=== PATIENT | male | born 1985 | race Caucasian/White ===

== ENCOUNTER 2018-06-05 21:49 | Emergency (ER) | payer MEDICAID ==
[~2018-06-05] VITALS: Ht 177.8 cm; Wt 79.4 kg
[2018-06-05] MEDS ORDERED: NKM (22:24)
[2018-06-05 22:25] VITALS: BP 145/78
--- NOTE | 2018-06-05 22:25 | NUR ---
ED Nurse Note: pt walked in c/o allergic rhinitis started 1 week ago. pt stated earlier he took claritin thats why the symptom subsided.
[2018-06-05] MEDS ORDERED: CLARITIN-D 241 EACH PO (22:45)
[2018-06-05] MEDS ORDERED: FLONASE ALLERG9.9 ML NS (22:45)
[2018-06-05 22:55] VITALS: BP 145/78
--- NOTE | 2018-06-05 22:55 | NUR ---
ER DISCHARGE NOTE: Patient is cleared to be discharged per ERMD, pt is aox4, on room air, with stable vital signs. pt was given dc and prescription instructions, pt was able to verbalize understanding, pt id band removed without complications. pt is able to ambulate with steady gait. pt took all belongings.
--- NOTE | 2018-06-06 00:07 | Emergency Room Report ---
History of Present Illness General Chief Complaint: Allergies Source: Patient Present Illness HPI 32-year-old male presents ED for evaluation. Complaining of runny nose and seasonal allergies times one week. Normally takes Claritin and Flonase but does not have medication at this time. Denies fevers or chills. Denies cough. Denies sore throat. Denies any pain. No other aggravating relieving factors. Denies any other associated symptoms Allergies: Coded Allergies: No Known Allergies (Unverified , 06/05/18) Patient History Past Medical History: none Past Surgical History: none Pertinent Family History: none Social History: Denies: smoking, alcohol use, drug use Immunizations: UTD Reviewed Nursing Documentation: PMH: Agreed; PSxH: Agreed Review of Systems All Other Systems: negative except mentioned in HPI Physical Exam Vital Signs Date Time Temp Pulse Resp B/P (MAP) Pulse Ox O2 Delivery O2 Flow Rate FiO2 06/05/18 22:21 98.8 79 16 145/78 95 Room Air Sp02 EP Interpretation: reviewed, normal General Appearance: no apparent distress, alert, GCS 15, non-toxic Head: normocephalic Eyes: bilateral eye normal inspection, bilateral eye PERRL ENT: hearing grossly normal, normal pharynx, no angioedema, normal voice, TMs + canals normal Neck: full range of motion, supple/symm/no masses Respiratory: normal inspection Cardiovascular #1: normal inspection Gastrointestinal: normal inspection Rectal: deferred Genitourinary: no CVA tenderness Musculoskeletal: normal inspection Neurologic: alert, oriented x3, responsive, motor strength/tone normal, sensory intact, speech normal Psychiatric: normal inspection Skin: normal inspection Lymphatic: normal inspection Medical Decision Making Diagnostic Impression: Primary Impression: Environmental allergies ER Course Hospital Course 32-year-old male presents with runny nose and history of allergies times one week Differential diagnoses include: URI, pharyngitis, otitis media, asthma Clinical course Patient placed on stretcher. After initial history, physical exam reveals a young male in no acute distress. Bilateral TM unremarkable. No pharyngeal erythema. No tonsillar exudates. No lymphadenopathy. lungs clear. abdomen soft. No signs of infection. Likely seasonal allergies. We will discharge with Claritin and Flonase. Safe for discharge with close outpatient follow-up. Does not have a PMD. We'll provide referrals Diagnosis - environmental allergies Stable and discharged home with Rx claritin, flonase. Instructed to followup with PMD. Return to ED if symptoms recur or worsen Last Vital Signs Date Time Temp Pulse Resp B/P (MAP) Pulse Ox O2 Delivery O2 Flow Rate FiO2 06/05/18 22:55 98.8 76 16 145/78 95 Room Air Status: improved Disposition: HOME, SELF-CARE Condition: Stable Scripts Fluticasone Propionate (Flonase Allergy Relief) 9.9 Ml [place].susp 1 SPRAYS NS BID, #9.9 ML Prov: Alfonzo Martinez MD 06/05/18 Loratadine/Pseudoephedrine (CLARITIN-D 24 HOUR TABLET) 1 Each Tab.er.24h 1 TAB PO DAILY, #30 TAB Prov: Alfonzo Martinez MD 06/05/18 Referrals: [facility]P) [facility]. [facility] Patient Instructions: Allergies Alfonzo Martinez MD Jun 06, 2018 00:07
== END 2018-06-05 22:55 | disposition home or self-care (01) ==
LOC: EMR 22:39
DX: J30.2 Other seasonal allergic rhinitis (principal)
CPT/HCPCS: 99282

== ENCOUNTER 2018-08-03 22:24 | Emergency (ER) | payer MEDICAID ==
[~2018-08-03] VITALS: Ht 177.8 cm; Wt 81.6 kg
[~2018-08-03 22:24] MED LIST: CLARITIN-D 241 EACH PO; FLONASE ALLERG9.9 ML NS; NKM
--- NOTE | 2018-08-03 22:41 | NUR ---
ED Nurse Note: Received report. Pt from home, ambulatory, AAOx4, c/o increased symptoms of seasinal allergies, wanting a prescription for Claritin. Will assess and carry out ER MD's orders.
[2018-08-03 22:44] VITALS: BP 135/71
--- NOTE | 2018-08-03 22:57 | Emergency Room Report ---
History of Present Illness General Chief Complaint: Allergies Source: Patient Present Illness HPI Patient presents requesting refills of Claritin, Sudafed and Nasonex. I he's not been taking his medications for a while. He takes in a long time to get sees . There is any fevers chills productive cough. He does have a runny nose and itchy throat and UTI. Allergies: Coded Allergies: No Known Allergies (Unverified , 08/03/18) Patient History Past Medical History: see triage record Reviewed Nursing Documentation: PMH: Agreed; PSxH: Agreed Physical Exam Vital Signs Date Time Temp Pulse Resp B/P (MAP) Pulse Ox O2 Delivery O2 Flow Rate FiO2 08/03/18 22:28 98.2 68 16 135/71 (92) 98 Room Air Medical Decision Making Diagnostic Impression: Primary Impression: Environmental allergies Status: unchanged Disposition: HOME, SELF-CARE Condition: Stable Prabhu Dailey MD August 03, 2018 22:57
[2018-08-03] MEDS ORDERED: PSEUDOEPHEDRINE60 MG PO (23:11)
[2018-08-03] MEDS ORDERED: CLARITIN10 M2 ORAL (23:11)
[2018-08-03] MEDS ORDERED: NASONEX17 GM NASAL (23:11)
--- NOTE | 2018-08-03 23:27 | NUR ---
ED Nurse Note: Pt cleared by health care Provider for discharge. DC instructions/prescription was given and explained to pt and verbalized understanding of teachings. All medical deviecs such as ID band removed. Pt is AAO x4, ambulatory and left with all personal belongings.
== END 2018-08-03 23:30 | disposition home or self-care (01) ==
LOC: EMR 23:00
DX: T78.40XA Allergy, unspecified, initial encounter (principal); X58.XXXA Exposure to other specified factors, initial encounter
CPT/HCPCS: 99282

== ENCOUNTER 2019-03-12 16:55 | Emergency (ER) | payer MEDICAID ==
[~2019-03-12] VITALS: Ht 177.8 cm; Wt 79.4 kg
[~2019-03-12 16:55] MED LIST changes: +CLARITIN10 M2 ORAL; +NASONEX17 GM NASAL; +PSEUDOEPHEDRINE60 MG PO
--- NOTE | 2019-03-12 17:42 | NUR ---
ED Nurse Note: Patient arrived to ED by car from home c/o lymph node pain. Patient AxO x 4, VSS. No s/s of acute distress. Bed in lowest position.
[2019-03-12 17:55] VITALS: BP 110/61
--- NOTE | 2019-03-12 18:23 | Emergency Room Report ---
History of Present Illness General Chief Complaint: Pain Source: Patient Present Illness HPI 33-year-old female with no symptom past medical history here complaining of left sided anterior lymph node edema x2 days. Complains of left-sided neck pain however denies any meningismus fever and chills. Complains of sore throat rating a 5 out of 10. No obvious white exudates noted. Denies headache and dizziness, complains of minor cough however denies any congestion. Denies tobacco smoke, drug use. Has not taken medication for symptom relief. Denies recent travel. Allergies: Coded Allergies: No Known Allergies (Unverified , 08/03/18) Patient History Past Medical History: see triage record Past Surgical History: none Pertinent Family History: none Immunizations: UTD Reviewed Nursing Documentation: PMH: Agreed; PSxH: Agreed Nursing Documentation-PMH Past Medical History: No History, Except For Review of Systems All Other Systems: negative except mentioned in HPI Physical Exam Vital Signs Date Time Temp Pulse Resp B/P (MAP) Pulse Ox O2 Delivery O2 Flow Rate FiO2 03/12/19 17:46 98.8 72 16 110/61 (77) 95 Room Air Sp02 EP Interpretation: reviewed, normal General Appearance: no apparent distress, alert, GCS 15, non-toxic Head: normocephalic, atraumatic Eyes: bilateral eye normal inspection, bilateral eye PERRL ENT: TMs + canals normal, uvula midline, nasal congestion, tonsillar swelling Neck: supple, thyroid normal, no meningismus, no bony tend, other - Left anterior cervical lymphadenopathy Respiratory: chest non-tender, lungs clear, normal breath sounds, no rhonchi, no wheezing Cardiovascular #1: regular rate, rhythm, no edema, no murmur Gastrointestinal: non tender, soft Rectal: deferred Genitourinary: no CVA tenderness Musculoskeletal: back normal, no calf tenderness Neurologic: alert, motor strength/tone normal, oriented x3, sensory intact, responsive, speech normal Psychiatric: normal inspection, judgement/insight normal, memory normal Skin: no rash Lymphatic: adenopathy - Left-sided anterior cervical lymphadenopathy Medical Decision Making PA Attestation All diagnoses and treatment plans were reviewed and discussed with my supervising physician Dr. Shine Diagnostic Impression: Primary Impression: Cervical lymphadenopathy Additional Impression: Flu-like symptoms ER Course 33-year-old female with no symptom past medical history here complaining of left sided anterior lymph node edema x2 days. Complains of left-sided neck pain however denies any meningismus fever and chills. Complains of sore throat rating a 5 out of 10. No obvious white exudates noted. Denies headache and dizziness, complains of minor cough however denies any congestion. Denies tobacco smoke, drug use. Has not taken medication for symptom relief. Denies recent travel. Ddx considered but are not limited to: strep pharyngitis, URI, tonsillitis, peritonsillar abscess, influenza Vital signs: are WNL, pt. is afebrile H&PE are most consistent with: Cervical lymphadenopathy, flulike symptom, ORDERS: Tamiflu, guaifenesin, Motrin ED INTERVENTIONS: None required at this time. DISCHARGE: At this time pt. is stable for d/c to home. Will provide printed patient care instructions, and any necessary prescriptions. Care plan and follow up instructions have been discussed with the patient prior to discharge. Due to the patient's presentation of left-sided anterior cervical lymphadenopathy and no obvious white exudates patient to be treated Adarsh for viral and bacterial infection. Patient agrees. If worsening symptoms return to emergency room. However follow-up with primary care provider Last Vital Signs Date Time Temp Pulse Resp B/P (MAP) Pulse Ox O2 Delivery O2 Flow Rate FiO2 03/12/19 17:46 98.8 72 16 110/61 (77) 95 Room Air Disposition: HOME, SELF-CARE Condition: Stable Scripts Guaifenesin* (GUAIFENESIN) 100 Mg/5 Ml Liquid 5 ML ORAL Q6H, #120 ML 0 Refills Prov: Huma Epperson PA 03/12/19 Ibuprofen* (MOTRIN*) 600 Mg Tablet 600 MG ORAL Q8H PRN for For Pain, #30 TAB 0 Refills Prov: Huma Epperson PA 03/12/19 Azithromycin* (ZITHROMAX*) 250 Mg Tablet 250 MG ORAL DAILY, #6 TAB 0 Refills Take two tables once daily for 1 day, then one tablet once daily for 4 days. Prov: Huma Epperson PA 03/12/19 Oseltamivir Phosphate (Tamiflu) 75 Mg Capsule 75 MG ORAL TWICE A DAY for 5 Days, #10 CAP Prov: Huma Epperson PA 03/12/19 Patient Instructions: Pharyngitis, [id number] Additional Instructions: Take medication as directed, follow-up with your primary care provider, if worsening symptoms return to the emergency room Huma Epperson Mar 12, 2019 18:23
[2019-03-12] MEDS ORDERED: ZITHROMAX250 MG ORAL (18:24)
[2019-03-12] MEDS ORDERED: GUAIFENESI100 MG/5 M ORAL (18:24)
[2019-03-12] MEDS ORDERED: IBUPROFEN600 MG ORAL (18:24)
[2019-03-12] MEDS ORDERED: TAMIFLU75 MG ORAL (18:24)
[2019-03-12 18:30] VITALS: BP 110/61
--- NOTE | 2019-03-12 18:30 | NUR ---
ED DISCHARGE NOTE: Patient cleared for DC by Huma WOODARD. Patient AxO x 4, VSS. Patient verbalized understanding of DC instructions. Patient ID band removed. Patient ambulates with steady gait and took all belongings.
== END 2019-03-12 18:30 | disposition home or self-care (01) ==
LOC: EMR 18:00
DX: R59.1 Generalized enlarged lymph nodes (principal); M54.2 Cervicalgia; R07.0 Pain in throat
CPT/HCPCS: 99282

== ENCOUNTER 2019-05-12 20:58 | Emergency (ER) | payer MEDICAID ==
[~2019-05-12] VITALS: Ht 175.3 cm; Wt 77.1 kg
[~2019-05-12 20:58] MED LIST changes: +ATIVAN1 MG ORAL; +GUAIFENESI100 MG/5 M ORAL; +IBUPROFEN600 MG ORAL; +TAMIFLU75 MG ORAL; +ZITHROMAX250 MG ORAL
--- NOTE | 2019-05-12 21:13 | Emergency Room Report ---
History of Present Illness General Chief Complaint: Alcohol Intoxication Source: Patient Present Illness HPI Patient is a 33-year-old male who presents after increased alcohol intake as well as increased abdominal discomfort. He reports having significant alcohol intake over the past 4 days. He states that he had been having some nonbloody emesis as well as some increased abdominal discomfort. Denies any fever. Reports last alcohol intake approximately 5 hours prior to arrival. He states he drank several shots of alcohol at that time. Denies any bloody stools. Denies any back pain. Denies recent trauma. Previous visit for alcohol related issues. States that he is an intermittent binge drinker. Allergies: Coded Allergies: No Known Allergies (Unverified , 08/03/18) Patient History Past Medical History: see triage record Reviewed Nursing Documentation: PMH: Agreed; PSxH: Agreed Review of Systems All Other Systems: negative except mentioned in HPI Physical Exam Vital Signs Date Time Temp Pulse Resp B/P (MAP) Pulse Ox O2 Delivery O2 Flow Rate FiO2 05/12/19 21:00 98.8 103 18 143/80 (101) 94 Room Air Sp02 EP Interpretation: reviewed, normal General Appearance: normal inspection, well appearing, no apparent distress, alert, GCS 15 Head: atraumatic ENT: normal ENT inspection, hearing grossly normal, normal voice Neck: normal inspection, full range of motion, supple, no bony tend Respiratory: normal inspection, lungs clear, normal breath sounds, no respiratory distress, no retraction, no wheezing Cardiovascular #1: regular rate, rhythm, no edema Gastrointestinal: normal inspection, normal bowel sounds, non tender, soft, no guarding, no hernia Genitourinary: no CVA tenderness Musculoskeletal: normal inspection, back normal, normal range of motion Neurologic: alert, motor strength/tone normal, shape carver III-XII nml as tested, responsive, speech normal, normal inspection Psychiatric: normal inspection, judgement/insight normal, mood/affect normal Skin: no rash Medical Decision Making Diagnostic Impression: Primary Impression: Acute alcoholic intoxication ER Course Patient presented for increased nausea and vomiting as well as increased generalized weakness. Differential diagnosis include was not limited to alcohol intoxication, electrolyte abnormality, acidosis, anemia among others. Because of complexity of patient's case laboratory tests and imaging studies were ordered. Laboratory testing was ordered and patient was started on IV fluids as well as given IV thiamine. Does not appear to have any evidence of alcohol withdrawal Patient's laboratory testing did show some market elevation of the blood alcohol consistent with acute alcohol intoxication. Laboratory testing did also show some signs of hemoconcentration. Patient was given IV fluids as well as IV thiamine. Patient subsequently stated he wanted to leave. On direct questioning patient denies any suicidal thoughts. Does not appear to require inpatient psychiatric evaluation at this time. Appears to be capable of self-care and is ambulatory without assistance. Patient was given prescription for medications for possible withdrawal. He was advised to follow- up with outpatient alcohol treatment. He was advised to return if worse. This report is dictated with [employer] solution specialist software which may occasionally lead to discrepancies related to use of this software. Labs Test 05/12/19 21:18 White Blood Count 12.5 K/UL (4.8-10.8) Red Blood Count 6.57 M/UL (4.70-6.10) Hemoglobin 18.9 G/DL (14.2-18.0) Hematocrit 56.6 % (42.0-52.0) Mean Corpuscular Volume 86 FL (80-99) Mean Corpuscular Hemoglobin 28.8 PG (27.0-31.0) Mean Corpuscular Hemoglobin Concent 33.4 G/DL (32.0-36.0) Red Cell Distribution Width 12.1 % (11.6-14.8) Platelet Count 327 K/UL (150-450) Mean Platelet Volume 6.0 FL (6.5-10.1) Neutrophils (%) (Auto) 70.9 % (45.0-75.0) Lymphocytes (%) (Auto) 23.8 % (20.0-45.0) Monocytes (%) (Auto) 4.2 % (1.0-10.0) Eosinophils (%) (Auto) 0.1 % (0.0-3.0) Basophils (%) (Auto) 0.9 % (0.0-2.0) Urine Color Pale yellow Urine Appearance Clear Urine pH 6.5 (4.5-8.0) Urine Specific [place] 1.010 (1.005-1.035) Urine Protein 1+ (NEGATIVE) Urine Glucose (UA) Negative (NEGATIVE) Urine Ketones 2+ (NEGATIVE) Urine Blood 1+ (NEGATIVE) Urine Nitrite Negative (NEGATIVE) Urine Bilirubin Negative (NEGATIVE) Urine Urobilinogen Normal MG/DL (0.0-1.0) Urine Leukocyte Esterase Negative (NEGATIVE) Urine RBC 0-2 /HPF (0 - 0) Urine WBC 0-2 /HPF (0 - 0) Urine Squamous Epithelial Cells None /LPF (NONE/OCC) Urine Bacteria Occasional /HPF (NONE) Sodium Level 143 MMOL/L (136-145) Potassium Level 4.0 MMOL/L (3.5-5.1) Chloride Level 99 MMOL/L (98-107) Carbon Dioxide Level 28 MMOL/L (21-32) Anion Gap 16 mmol/L (5-15) Blood Urea Nitrogen 9 mg/dL (7-18) Creatinine 1.1 MG/DL (0.55-1.30) Estimat Glomerular Filtration Rate > 60 mL/min (>60) Glucose Level 115 MG/DL (74-106) Calcium Level 9.9 MG/DL (8.5-10.1) Total Bilirubin 0.5 MG/DL (0.2-1.0) Aspartate Amino Transf (AST/SGOT) 23 U/L (15-37) Alanine Aminotransferase (ALT/SGPT) 39 U/L (12-78) Alkaline Phosphatase 105 U/L (46-116) Total Protein 8.5 G/DL (6.4-8.2) Albumin 5.2 G/DL (3.4-5.0) Globulin 3.3 g/dL Albumin/Globulin Ratio 1.6 (1.0-2.7) Lipase 130 U/L (73-393) Serum Alcohol 245 mg/dL Last Vital Signs Date Time Temp Pulse Resp B/P (MAP) Pulse Ox O2 Delivery O2 Flow Rate FiO2 05/12/19 21:00 98.8 103 18 143/80 (101) 94 Room Air Status: improved Disposition: HOME, SELF-CARE Condition: Stable Scripts Lorazepam* (ATIVAN*) 1 Mg Tablet 1 MG ORAL THREE TIMES A DAY, #14 TAB Prov: Mario Flores MD 05/12/19 Famotidine* (Pepcid 20mg tablet*) 20 Mg Tablet 20 MG ORAL DAILY, #30 TAB 0 Refills Prov: Mario Flores MD 05/12/19 Mario Flores MD May 12, 2019 21:13
[2019-05-12 21:15] VITALS: BP 143/80
[2019-05-12] MEDS ORDERED: Thiamine HCl 100 MG in D5W 55 ML IVPB ONE (21:15)
[2019-05-12] MEDS ORDERED: FAMOTIDINE20 MG ORAL (21:15)
[2019-05-12] MEDS ORDERED: ATIVAN1 MG ORAL (21:15)
--- NOTE | 2019-05-12 21:15 | NUR ---
ED Nurse Note: Patient walked in to ER due to ETOH. Stated argued with parents, and do not want to go home. Patient stated has no idea how much he drink today. AAO x4, VSS at this time, skin is warm to touch.
[2019-05-12 21:42] LABS: APPEARANCE,URINE CLEAR; BILIRUBIN, URINE NEGATIVE (NEGATIVE); COLOR,URINE PALE YELLOW; GLUCOSE, URINE (UA) NEGATIVE (NEGATIVE); KETONES,URINE 2+ (NEGATIVE); LEUKOCYTE ESTERASE ,URINE NEGATIVE (NEGATIVE); NITRITE,URINE NEGATIVE (NEGATIVE); PH,URINE 6.5 (4.5-8.0); PROTEIN,URINE 1+ (NEGATIVE); UROBILINOGEN,URINE NORMAL MG/DL (0.0-1.0)
[2019-05-12 21:44] LABS: BASOPHILS % (AUTO) 0.9 % (0.0-2.0); EOSINOPHILS % (AUTO) 0.1 % (0.0-3.0); HEMATOCRIT 56.6 % (42.0-52.0); LYMPHOCYTES % (AUTO) 23.8 % (20.0-45.0); MEAN CORPUSCULAR VOLUME 86 FL (80-99); MONOCYTES % (AUTO) 4.2 % (1.0-10.0); NEUTROPHILS % (AUTO) 70.9 % (45.0-75.0); PLATELET COUNT 327 K/UL (150-450); RED BLOOD COUNT 6.57 M/UL (4.70-6.10); RED CELL DISTRIBUTION WIDTH 12.1 % (11.6-14.8); WHITE BLOOD COUNT 12.5 K/UL (4.8-10.8)
[2019-05-12 21:45] LABS: ANION GAP 16 mmol/L (5-15); BLOOD UREA NITROGEN 9 mg/dL (7-18); CALCIUM 9.9 MG/DL (8.5-10.1); CARBON DIOXIDE 28 MMOL/L (21-32); CHLORIDE 99 MMOL/L (98-107); CREATININE 1.1 MG/DL (0.55-1.30); HEMOGLOBIN 18.9 G/DL (14.2-18.0); SODIUM 143 MMOL/L (136-145)
[2019-05-12 21:50] LABS: ALANINE AMINOTRANSFERASE 39 U/L (12-78); ALBUMIN 5.2 G/DL (3.4-5.0); ALBUMIN/GLOBULIN RATIO 1.6 (1.0-2.7); ALKALINE PHOSPHATASE 105 U/L (46-116); ASPARTATE AMINO TRANSFERASE 23 U/L (15-37); BILIRUBIN,TOTAL 0.5 MG/DL (0.2-1.0)
[2019-05-12 22:48] VITALS: BP 143/80
--- NOTE | 2019-05-12 22:48 | NUR ---
ER DISCHARGE NOTE: Patient is cleared to be discharged per ERMD, pt is aox4, on room air, with stable vital signs. pt was given dc and prescription instructions, pt was able to verbalize understanding, pt id band and iv site removed without complications. pt is able to ambulate with steady gait. pt took all belongings.
== END 2019-05-12 22:48 | disposition home or self-care (01) ==
LOC: EMR 21:35
DX: F10.129 Alcohol abuse with intoxication, unspecified (principal); R10.9 Unspecified abdominal pain
CPT/HCPCS: 36415; 80053; 81003; 83690; 85025; 96361; 96365; 96375; G0480; J2405; J7030; S0028; Z7502; 99284

== ENCOUNTER 2019-05-17 06:59 | Emergency (ER) | payer MEDICAID ==
[~2019-05-17] VITALS: Ht 175.3 cm; Wt 81.6 kg
[~2019-05-17 06:59] MED LIST changes: +FAMOTIDINE20 MG ORAL
--- NOTE | 2019-05-17 07:02 | Emergency Room Report ---
History of Present Illness General Chief Complaint: Suicidal ideations Source: Patient, EMS Present Illness HPI 33-year-old male no past medical history history of slitting his wrist in the past presents with acute suicidal ideations after drinking states he wants to cut his wrist again and drink himself to no known aggravating relieving factors severity is severe symptoms started last night, patient presents for evaluation he is currently not on any meds he wants to be sent to a psychiatric facility Allergies: Coded Allergies: No Known Allergies (Unverified , 08/03/18) Patient History Past Medical History: see triage record Social History: Reports: alcohol use Reviewed Nursing Documentation: PMH: Agreed; PSxH: Agreed Review of Systems All Other Systems: negative except mentioned in HPI Physical Exam Sp02 EP Interpretation: reviewed, normal General Appearance: well appearing, no apparent distress, alert Head: normocephalic, atraumatic Eyes: bilateral eye PERRL, bilateral eye EOMI ENT: uvula midline, moist mucus membranes Neck: supple, thyroid normal, supple/symm/no masses Respiratory: lungs clear, no respiratory distress, no retraction, no accessory muscle use Cardiovascular #1: normal peripheral pulses, no edema, no gallop, no murmur, tachycardia Gastrointestinal: non tender, soft, no guarding, no rebound Musculoskeletal: normal inspection Neurologic: alert, oriented x3 Psychiatric: anxious Skin: no rash, warm/dry Medical Decision Making Diagnostic Impression: Primary Impression: Suicidal ideation ER Course 33-year-old male presents with acute suicidal ideations patient placed on a 5150 by police Patient accepted another outside facility patient is medically cleared patient' s plan was to cut his wrists to kill himself Laboratory Tests Test 05/17/19 07:00 05/17/19 11:43 White Blood Count 14.6 K/UL (4.8-10.8) H Red Blood Count 6.25 M/UL (4.70-6.10) H Hemoglobin 18.6 G/DL (14.2-18.0) *H Hematocrit 53.0 % (42.0-52.0) H Mean Corpuscular Volume 85 FL (80-99) Mean Corpuscular Hemoglobin 29.8 PG (27.0-31.0) Mean Corpuscular Hemoglobin Concent 35.2 G/DL (32.0-36.0) Red Cell Distribution Width 10.9 % (11.6-14.8) L Platelet Count 289 K/UL (150-450) Mean Platelet Volume 5.5 FL (6.5-10.1) L Neutrophils (%) (Auto) 75.2 % (45.0-75.0) H Lymphocytes (%) (Auto) 20.6 % (20.0-45.0) Monocytes (%) (Auto) 3.4 % (1.0-10.0) Eosinophils (%) (Auto) 0.0 % (0.0-3.0) Basophils (%) (Auto) 0.9 % (0.0-2.0) Urine Color Pale yellow Urine Appearance Clear Urine pH 5 (4.5-8.0) Urine Specific [place] 1.020 (1.005-1.035) Urine Protein Negative (NEGATIVE) Urine Glucose (UA) Negative (NEGATIVE) Urine Ketones 3+ (NEGATIVE) H Urine Blood Negative (NEGATIVE) Urine Nitrite Negative (NEGATIVE) Urine Bilirubin Negative (NEGATIVE) Urine Urobilinogen Normal MG/DL (0.0-1.0) Urine Leukocyte Esterase Negative (NEGATIVE) Sodium Level 139 MMOL/L (136-145) Potassium Level 3.7 MMOL/L (3.5-5.1) Chloride Level 100 MMOL/L (98-107) Carbon Dioxide Level 21 MMOL/L (21-32) Anion Gap 18 mmol/L (5-15) H Blood Urea Nitrogen 16 mg/dL (7-18) Creatinine 1.1 MG/DL (0.55-1.30) Estimate Glomerular Filtration Rate > 60 mL/min (>60) Glucose Level 94 MG/DL (74-106) Calcium Level 9.4 MG/DL (8.5-10.1) Total Bilirubin 0.5 MG/DL (0.2-1.0) Aspartate Amino Transferase (AST) 31 U/L (15-37) Alanine Aminotransferase (ALT) 41 U/L (12-78) Alkaline Phosphatase 99 U/L (46-116) Total Protein 8.6 G/DL (6.4-8.2) H Albumin 5.0 G/DL (3.4-5.0) Globulin 3.6 g/dL Albumin/Globulin Ratio 1.4 (1.0-2.7) Salicylates Level 1.5 ug/mL (2.8-20) L Urine Opiates Screen Negative (NEGATIVE) Acetaminophen Level < 2 MCG/ML (10-30) L Urine Barbiturates Screen Negative (NEGATIVE) Phencyclidine (PCP) Screen Negative (NEGATIVE) Urine Amphetamines Screen Negative (NEGATIVE) Urine Benzodiazepines Screen Negative (NEGATIVE) Urine Cocaine Screen Negative (NEGATIVE) Urine Marijuana (THC) Screen Positive (NEGATIVE) H Serum Alcohol 212 mg/dL 103 mg/dL Disposition: XFER TO PSYCH HOSP/UNIT Condition: Stable Patient Instructions: Suicidal Feelings: How to Help Yourself Additional Instructions: The patient was provided with discharge instructions, notified to follow-up with a primary care doctor and or specialist in the next 24-48 hours, and to return to the ED if they have worsening of their symptoms. Please note that this report is being documented using [employer] technology. This can lead to erroneous entry secondary to incorrect interpretation by the dictating instrument. Kwadwo Dillard MD May 17, 2019 07:02
--- NOTE | 2019-05-17 07:10 | NUR ---
ED Nurse Note: pt presents to ED via EMS arrival [facility] RA 861 from home with an SI complaint. pt was seen and treated here 4 days ago for similar symptoms, and given referrals to follow up with. pt states that he has had a previous attempt before and that his plan would be to "slit his wrists" because it would be the "easist way." pt state today that he drank 2 or 3 750 mL bottles of white wine . pt vomited once in ED, EMS report that pt did not vomit en route. pt also admits to smoking marijuana. pt denies any pain at this time, is compliant and follows commands, AOx4. pt appears to ramble but can be easily redirected and answers questions coherently. no signs of distress noted at this time
[2019-05-17 07:16] VITALS: BP 119/69
--- NOTE | 2019-05-17 07:16 | NUR ---
PT BELONGINGS PLACED IN LOCKER 3
--- NOTE | 2019-05-17 07:17 | NUR ---
ED Nurse Note: patient is resting in bed. patient is alert awake, calm and cooperative. patient on a hospital gown. patient reports "I just feel really down and I need help."
[2019-05-17 07:23] LABS: APPEARANCE,URINE CLEAR; BILIRUBIN, URINE NEGATIVE (NEGATIVE); COLOR,URINE PALE YELLOW; GLUCOSE, URINE (UA) NEGATIVE (NEGATIVE); KETONES,URINE 3+ (NEGATIVE); LEUKOCYTE ESTERASE ,URINE NEGATIVE (NEGATIVE); NITRITE,URINE NEGATIVE (NEGATIVE); PH,URINE 5 (4.5-8.0); PROTEIN,URINE NEGATIVE (NEGATIVE); UROBILINOGEN,URINE NORMAL MG/DL (0.0-1.0)
[2019-05-17 07:27] LABS: BASOPHILS % (AUTO) 0.9 % (0.0-2.0); LYMPHOCYTES % (AUTO) 20.6 % (20.0-45.0); MEAN CORPUSCULAR VOLUME 85 FL (80-99); MONOCYTES % (AUTO) 3.4 % (1.0-10.0); NEUTROPHILS % (AUTO) 75.2 % (45.0-75.0); PLATELET COUNT 289 K/UL (150-450); RED BLOOD COUNT 6.25 M/UL (4.70-6.10); RED CELL DISTRIBUTION WIDTH 10.9 % (11.6-14.8); WHITE BLOOD COUNT 14.6 K/UL (4.8-10.8)
[2019-05-17 07:28] LABS: HEMOGLOBIN 18.6 G/DL (14.2-18.0)
[2019-05-17 07:29] LABS: ANION GAP 18 mmol/L (5-15); BLOOD UREA NITROGEN 16 mg/dL (7-18); CALCIUM 9.4 MG/DL (8.5-10.1); CARBON DIOXIDE 21 MMOL/L (21-32); CHLORIDE 100 MMOL/L (98-107); CREATININE 1.1 MG/DL (0.55-1.30); POTASSIUM 3.7 MMOL/L (3.5-5.1); SODIUM 139 MMOL/L (136-145)
[2019-05-17 07:33] LABS: ALANINE AMINOTRANSFERASE 41 U/L (12-78); ALBUMIN/GLOBULIN RATIO 1.4 (1.0-2.7); ALKALINE PHOSPHATASE 99 U/L (46-116); ASPARTATE AMINO TRANSFERASE 31 U/L (15-37); BILIRUBIN,TOTAL 0.5 MG/DL (0.2-1.0)
--- NOTE | 2019-05-17 08:10 | NUR ---
ED Nurse Note: PT. PLACED IN 5150 BY [employer]ERS
--- NOTE | 2019-05-17 09:00 | NUR ---
ED Nurse Note: patient provided with breakfast tray, water and milk. patient tolerated without complication
[2019-05-17] MEDS ORDERED: chlordiazePOXIDE 25mg Cap ORAL ONE (09:15)
[2019-05-17] MEDS ORDERED: DiphenhydrAMINE 50mg/ml Inj IVP ONE ×2 (09:15→14:00)
[2019-05-17] MEDS ORDERED: LORazepam Inj 2mg/ml 1ml IV ONE ×2 (11:00→14:00)
--- NOTE | 2019-05-17 11:30 | NUR ---
ED Nurse Note: lunch tray provided. patient tolerated.
[2019-05-17] MEDS ORDERED: Haloperidol 5mg/ml Inj IM ONE (14:00)
[2019-05-17 14:11] VITALS: BP 120/76
--- NOTE | 2019-05-17 15:06 | NUR ---
ED Nurse Note: sandwich and cranberry juices provided for the patient. patient tolerated.
--- NOTE | 2019-05-17 16:01 | Emergency Room Report ---
Physical Exam Vital Signs Date Time Temp Pulse Resp B/P (MAP) Pulse Ox O2 Delivery O2 Flow Rate FiO2 05/17/19 07:01 98.8 114 18 119/69 (86) 98 Room Air Medical Decision Making Diagnostic Impression: Primary Impression: Suicidal ideation ER Course Patient signed out by . Patient had presented with suicidal ideation and already placed on a 5150 hold. Patient has been medically cleared. Patient has been accepted at [facility] for further psychiatric treatment and evaluation by . Awaiting transportation. Last Vital Signs Date Time Temp Pulse Resp B/P (MAP) Pulse Ox O2 Delivery O2 Flow Rate FiO2 05/17/19 14:11 98.8 100 20 120/76 99 Room Air Disposition: XFER TO PSYCH HOSP/UNIT Condition: Stable Referrals: [facility] ([facility]P) Patient Instructions: Suicidal Feelings: How to Help Yourself Additional Instructions: Please note that this report is being documented using [employer] technology. This can lead to erroneous entry secondary to incorrect interpretation by the dictating instrument. Domi Chiang M.D. May 17, 2019 16:01
[2019-05-17 16:42] VITALS: BP 117/72
[2019-05-17 16:45] VITALS: BP 117/72
--- NOTE | 2019-05-17 16:45 | NUR ---
ED Nurse Note: patient is being transferred [facility] with all of his belongings in stable condition, IV line removed without complication.
--- NOTE | 2019-05-17 18:38 | NUR ---
ED Nurse Note: report given to Roman MARTINEZ. endorsed all plan of care to Roman Martinez.
== END 2019-05-17 16:49 ==
LOC: EDUNIT# 06:59 → EDBD 06:59 → EMR 07:10
DX: R45.851 Suicidal ideations (principal)
CPT/HCPCS: 36415; 80053; 80307; 81003; 85025; 96361; 96372; 96374; 96375; 96376; G0480; G0481; J1200; J1630; J7030; Z7502; 99285

== ENCOUNTER 2019-07-06 13:22 | Emergency (ER) | payer MEDICAID ==
[~2019-07-06] VITALS: Ht 177.8 cm; Wt 77.1 kg
[2019-07-06] VITALS (9 sets, daily range): BP systolic 112–130; BP diastolic 66–80
--- NOTE | 2019-07-06 13:23 | NUR ---
ED Nurse Note: Pt brought in by [facility] for behavioral complaint. Per EMS report, pt drank a whole bottle of rubbing alcohol a few hours ago. pt is alert x3, ambulatory. Verbalized being nauseous. [employer] is at scene and is placing pt on a 5150 hold.
--- NOTE | 2019-07-06 13:30 | NUR ---
ED Nurse Note: pt belonging placed in locker 3.
--- NOTE | 2019-07-06 13:35 | NUR ---
ED Nurse Note: blood sample collected. pt unable to urinate at this time, but is aware urine is needed
--- NOTE | 2019-07-06 13:38 | Emergency Room Report ---
History of Present Illness General Chief Complaint: Behavioral Complaint Source: EMS (Mary Ann Xiong) Present Illness HPI 33-year-old male presents to the emergency department brought by ambulance accompanied by PD for intentional intoxication. EMS responded to a call for altered mental status and upon arrival found patient to be altered and reporting that he also drank isopropyl alcohol. Per PD the patient stated that he drank that alcohol in order to numb himself so he can later cut his wrists. He is reporting SI and had a plan. This patient states he has a history of depression and he is currently on medications and taking his medications as directed. He reports in addition to drinking alcohol this morning he ran out of EtOH so he drank half a bottle of isopropyl alcohol. He denies pain at this time. He reports nausea and dry heaving. Pt. has been placed on a 5150 Hold by . (Mary Ann Xiong) Allergies: Coded Allergies: No Known Allergies (Unverified , 08/03/18) COVID-19 Screening Contact w/high risk pt: No Recent Travel to affected area: No Experienced COVID-19 symptoms?: No (Mary Ann Xiong) Patient History Past Medical History: psych hx Past Surgical History: unable to obtain Pertinent Family History: unable to obtain Social History: Reports: alcohol use Reviewed Nursing Documentation: PMH: Agreed; PSxH: Agreed (Mary Ann Xiong) Nursing Documentation-PMH Past Medical History: No History, Except For (Mary Ann Xiong) Review of Systems All Other Systems: limited - Pt. clinically inebriated (Mary Ann Xiong) Physical Exam Vital Signs Date Time Temp Pulse Resp B/P (MAP) Pulse Ox O2 Delivery O2 Flow Rate FiO2 07/06/19 13:19 97.5 105 16 132/78 (96) 99 Room Air Sp02 EP Interpretation: reviewed, normal General Appearance: alert, GCS 15, non-toxic, mild distress - dry heaving Head: normocephalic, atraumatic Eyes: bilateral eye normal inspection, bilateral eye PERRL ENT: hearing grossly normal, normal voice Neck: full range of motion Respiratory: chest non-tender, lungs clear, normal breath sounds, no respiratory distress, no accessory muscle use, no wheezing, speaking full sentences Cardiovascular #1: regular rate, rhythm, no edema, normal capillary refill Gastrointestinal: normal bowel sounds, non tender, soft Rectal: deferred Genitourinary: normal inspection Musculoskeletal: back normal, normal range of motion, gait/station normal, non- tender Neurologic: alert, motor strength/tone normal, oriented x3 - answers appropriately in a clinically inebriated speech, sensory intact, responsive, speech normal - intermittently slurred, no focal defects, other - no facial droop Psychiatric: judgement/insight normal, no suicidal/homicidal ideation Suicide Risk Assessment: Suicidal Ideation: Yes Had intent to initiate attempt: Yes Pt's plan for suicide attempt: Yes Has means to complete attempt: Yes Reflexes: 2+ knee (R), 2+ knee (L) Skin: no rash, normal color Lymphatic: no adenopathy (Mary Ann Xiong) Medical Decision Making PA Attestation Dr. Shine is my supervising Physician whom patient management has been discussed with. (Mary Ann Xiong) Diagnostic Impression: Primary Impression: Isopropyl alcohol poisoning Additional Impressions: Alcohol intoxication Qualified Codes: F10.929 - Alcohol use, unspecified with intoxication, unspecified Suicidal intent ER Course 33-year-old male presents to the emergency department brought by ambulance accompanied by PD for intentional intoxication. EMS responded to a call for altered mental status and upon arrival found patient to be altered and reporting that he also drank isopropyl alcohol. Per PD the patient stated that he drank that alcohol in order to numb himself so he can later cut his wrists. He is reporting SI and had a plan. This patient states he has a history of depression and he is currently on medications and taking his medications as directed. He reports in addition to drinking alcohol this morning he ran out of EtOH so he drank half a bottle of isopropyl alcohol. He denies pain at this time. He reports nausea and dry heaving. Pt is clinically inebriated but answering questions appropriately, he is mildly restless. Ddx considered but are not limited to OD, SI/HI, psychosis, UTI, intoxication, AMS, ABSTRACTER depression, Hypotension just to name a few. Vital signs: are WNL, pt. is afebrile H&PE are most consistent with behavioral/mental health issue ORDERS: - accuCheck: -CBC: WBC' 21.2 , repeated is 20 trending down. appears elevated due to acute stress reaction-retching /vomiting. - CMP: anion gap. 24, normal renal fn. electrolytes ok will replenish with fluids -Serum Osmolality: elevated! 456 repeat improved and trended downward to 309 -UA: negative for infection see results attached. -UDS: all negative -Salicylates and Acetaminophen - no acute intoxication. -Serum ETOH : 456, then repeat improved to 9 -EK !!initial osmolality gap calculated to be 139.2, using repeated lab values after pt. observation and fluids improved significantly to a gap of 28.5 ED INTERVENTIONS: - 1Liter NS Bolus x 3 - 4mg Zofran IV x 2 -Pepcid IV 20 mg Poison control was consulted after patient's initial presentation they agreed with the ordered work-up they did recommend methanol & ethanol level however order had to be canceled as lab called and stated that this is a send out and we would not receive results in a timely fashion. Poison control recommended symptomatic treatment/ fluids. DISPOSITION: Osm. Gap is improving, pt. tolerating oral fluids, clinically sober. Pt. is medically cleared for psychiatric evaluation. Labs Test 07/06/19 13:35 07/06/19 13:53 07/06/19 17:25 Differential Total Cells Counted 100 Neutrophils % (Manual) 84 % (45-75) Lymphocytes % (Manual) 14 % (20-45) Monocytes % (Manual) 2 % (1-10) Eosinophils % (Manual) 0 % (0-3) Basophils % (Manual) 0 % (0-2) Band Neutrophils 0 % (0-8) Platelet Estimate Adequate Platelet Morphology Normal Red Blood Cell Morphology Normal Salicylates Level 1.9 ug/mL (2.8-20) Acetaminophen Level < 2 MCG/ML (10-30) Urine Opiates Screen Negative (NEGATIVE) Urine Barbiturates Screen Negative (NEGATIVE) Phencyclidine (PCP) Screen Negative (NEGATIVE) Urine Amphetamines Screen Negative (NEGATIVE) Urine Benzodiazepines Screen Negative (NEGATIVE) Urine Cocaine Screen Negative (NEGATIVE) Urine Marijuana (THC) Screen Negative (NEGATIVE) White Blood Count 20.2 K/UL (4.8-10.8) Red Blood Count 5.66 M/UL (4.70-6.10) Hemoglobin 16.7 G/DL (14.2-18.0) Hematocrit 48.8 % (42.0-52.0) Mean Corpuscular Volume 86 FL (80-99) Mean Corpuscular Hemoglobin 29.4 PG (27.0-31.0) Mean Corpuscular Hemoglobin Concent 34.1 G/DL (32.0-36.0) Red Cell Distribution Width 11.7 % (11.6-14.8) Platelet Count 277 K/UL (150-450) Mean Platelet Volume 6.7 FL (6.5-10.1) Neutrophils (%) (Auto) 66.8 % (45.0-75.0) Lymphocytes (%) (Auto) 26.4 % (20.0-45.0) Monocytes (%) (Auto) 6.0 % (1.0-10.0) Eosinophils (%) (Auto) 0.0 % (0.0-3.0) Basophils (%) (Auto) 0.9 % (0.0-2.0) Sodium Level 133 MMOL/L (136-145) Potassium Level 4.1 MMOL/L (3.5-5.1) Chloride Level 96 MMOL/L (98-107) Carbon Dioxide Level 19 MMOL/L (21-32) Anion Gap 18 mmol/L (5-15) Blood Urea Nitrogen 15 mg/dL (7-18) Creatinine 1.5 MG/DL (0.55-1.30) Estimat Glomerular Filtration Rate 54.6 mL/min (>60) Glucose Level 120 MG/DL (74-106) Osmolality 309 mOsm/kg (297-317) Calcium Level 9.4 MG/DL (8.5-10.1) Total Bilirubin 0.4 MG/DL (0.2-1.0) Aspartate Amino Transf (AST/SGOT) 29 U/L (15-37) Alanine Aminotransferase (ALT/SGPT) 39 U/L (12-78) Alkaline Phosphatase 79 U/L (46-116) Total Protein 7.8 G/DL (6.4-8.2) Albumin 4.5 G/DL (3.4-5.0) Globulin 3.3 g/dL Albumin/Globulin Ratio 1.4 (1.0-2.7) Serum Alcohol 9 mg/dL (Mary Ann Xiong) ER Course Patient signed out to me. He presents with suicidal ideation with overdose on alcohol and isopropyl alcohol. He has been here for several hours and labs initially showed leukocytosis but clearing up. This is most likely a stress response. I discussed the case with the psychiatrist. Dr. Petersen to the patient to [facility] in [place]. Patient is medically clear. (Hesham Hernandez MD) EKG Diagnostic Results EP Interpretation: Dr. Shine Rate: tachycardiac - 114 Rhythm: NSR ST Segments: no acute changes ASA given to the pt in ED: No PA Scribe Text This Interpretation was scribed by VANCE Xiong. (Mary Ann Xiong) Last Vital Signs Date Time Temp Pulse Resp B/P (MAP) Pulse Ox O2 Delivery O2 Flow Rate FiO2 07/06/19 13:25 97.5 98 19 130/80 99 Room Air (Mary Ann Xiong) Status: improved (Hesham Hernandez MD) Disposition: PSYCH HOSP/UNIT Condition: Stable Referrals: [facility] (PCP) Mary Ann Xiong Jul 06, 2019 13:38 Hesham Hernandez MD Jul 06, 2019 23:01
[2019-07-06 13:57] LABS: HEMATOCRIT 51.7 % (42.0-52.0); MEAN CORPUSCULAR VOLUME 82 FL (80-99); PLATELET COUNT 311 K/UL (150-450); RED BLOOD COUNT 6.28 M/UL (4.70-6.10); RED CELL DISTRIBUTION WIDTH 10.4 % (11.6-14.8); WHITE BLOOD COUNT 21.9 K/UL (4.8-10.8)
[2019-07-06 13:59] LABS: HEMOGLOBIN 18.7 G/DL (14.2-18.0)
[2019-07-06 14:10] LABS: ANION GAP 24 mmol/L (5-15); BLOOD UREA NITROGEN 15 mg/dL (7-18); CALCIUM 9.6 MG/DL (8.5-10.1); CARBON DIOXIDE 19 MMOL/L (21-32); CHLORIDE 96 MMOL/L (98-107); CREATININE 1.5 MG/DL (0.55-1.30); SODIUM 139 MMOL/L (136-145)
--- NOTE | 2019-07-06 14:12 | NUR ---
ED Nurse Note: urine sample sent to lab
[2019-07-06 14:14] LABS: ALANINE AMINOTRANSFERASE 55 U/L (12-78); ALBUMIN 5.2 G/DL (3.4-5.0); ALBUMIN/GLOBULIN RATIO 1.4 (1.0-2.7); ALKALINE PHOSPHATASE 86 U/L (46-116); ASPARTATE AMINO TRANSFERASE 39 U/L (15-37); BILIRUBIN,TOTAL 0.6 MG/DL (0.2-1.0)
--- NOTE | 2019-07-06 14:40 | NUR ---
ED Nurse Note: pt is in bed, requested for food and drink. sandwich and water given. PT is calm and coorporative with care at this time.
--- NOTE | 2019-07-06 16:10 | NUR ---
ED Nurse Note: pt in bed resting, no acute distress is noted. VSS as documented.
[2019-07-06 17:47] LABS: ANION GAP 18 mmol/L (5-15); BLOOD UREA NITROGEN 15 mg/dL (7-18); CALCIUM 9.4 MG/DL (8.5-10.1); CARBON DIOXIDE 19 MMOL/L (21-32); CHLORIDE 96 MMOL/L (98-107); CREATININE 1.5 MG/DL (0.55-1.30); POTASSIUM 4.1 MMOL/L (3.5-5.1); SODIUM 133 MMOL/L (136-145)
[2019-07-06 17:52] LABS: ALANINE AMINOTRANSFERASE 39 U/L (12-78); ALBUMIN 4.5 G/DL (3.4-5.0); ALBUMIN/GLOBULIN RATIO 1.4 (1.0-2.7); ALKALINE PHOSPHATASE 79 U/L (46-116); ASPARTATE AMINO TRANSFERASE 29 U/L (15-37); BILIRUBIN,TOTAL 0.4 MG/DL (0.2-1.0)
[2019-07-06 17:53] LABS: HEMATOCRIT 48.8 % (42.0-52.0); HEMOGLOBIN 16.7 G/DL (14.2-18.0); MEAN CORPUSCULAR VOLUME 86 FL (80-99); PLATELET COUNT 277 K/UL (150-450); RED BLOOD COUNT 5.66 M/UL (4.70-6.10); RED CELL DISTRIBUTION WIDTH 11.7 % (11.6-14.8); WHITE BLOOD COUNT 20.2 K/UL (4.8-10.8)
[2019-07-06 17:54] LABS: BASOPHILS % (AUTO) 0.9 % (0.0-2.0); LYMPHOCYTES % (AUTO) 26.4 % (20.0-45.0); NEUTROPHILS % (AUTO) 66.8 % (45.0-75.0)
--- NOTE | 2019-07-06 19:05 | NUR ---
ED Nurse Note: Received Report from JOSE MARTIN Pate. Patient resting in bed, no acute distress noted.
--- NOTE | 2019-07-06 19:05 | NUR ---
ED Nurse Note: Report given to JOSE MARTIN Bishop. Endorsed plan of care.
--- NOTE | 2019-07-06 19:30 | NUR ---
Bobby called from poison control center and advised to repeat chemistry @2124. notified.
--- NOTE | 2019-07-06 20:20 | NUR ---
ED Nurse Note: provided patient with sandwich and juice.
--- NOTE | 2019-07-06 21:18 | NUR ---
ED Nurse Note: Repeat CMP collected and sent to lab. Addendum: 07/06/19 at 2127 by IOROPNORA ED Nurse Note: Repeat CMP and CBC collected and sent to lab.
[2019-07-06 21:38] LABS: ANION GAP 13 mmol/L (5-15); BLOOD UREA NITROGEN 13 mg/dL (7-18); CALCIUM 8.6 MG/DL (8.5-10.1); CARBON DIOXIDE 24 MMOL/L (21-32); CHLORIDE 100 MMOL/L (98-107); CREATININE 1.5 MG/DL (0.55-1.30); POTASSIUM 3.8 MMOL/L (3.5-5.1); SODIUM 137 MMOL/L (136-145)
[2019-07-06 21:43] LABS: ALANINE AMINOTRANSFERASE 34 U/L (12-78); ALBUMIN/GLOBULIN RATIO 1.4 (1.0-2.7); ALKALINE PHOSPHATASE 65 U/L (46-116); ASPARTATE AMINO TRANSFERASE 21 U/L (15-37); BILIRUBIN,TOTAL 0.6 MG/DL (0.2-1.0)
[2019-07-06 21:46] LABS: BASOPHILS % (AUTO) 0.7 % (0.0-2.0); HEMATOCRIT 43.1 % (42.0-52.0); HEMOGLOBIN 14.5 G/DL (14.2-18.0); LYMPHOCYTES % (AUTO) 18.6 % (20.0-45.0); MEAN CORPUSCULAR VOLUME 87 FL (80-99); MONOCYTES % (AUTO) 6.5 % (1.0-10.0); NEUTROPHILS % (AUTO) 74.2 % (45.0-75.0); PLATELET COUNT 229 K/UL (150-450); RED BLOOD COUNT 4.96 M/UL (4.70-6.10); RED CELL DISTRIBUTION WIDTH 12.2 % (11.6-14.8); WHITE BLOOD COUNT 17.2 K/UL (4.8-10.8)
[2019-07-06] MEDS ORDERED: Acetaminophen 500mg (ES) tab ORAL ONE (22:15)
--- NOTE | 2019-07-06 22:50 | NUR ---
ED Nurse Note: Provided patient with water.
--- NOTE | 2019-07-07 01:56 | NUR ---
ED Nurse Note: gave report to Tish at [facility]
[2019-07-07 02:07] VITALS: BP 112/72
[2019-07-07 02:43] VITALS: BP 138/81
--- NOTE | 2019-07-07 02:43 | NUR ---
ER DISCHARGE NOTE: Patient is medically cleared to be transferred to [facility] per ERMD. Patient aao x 4 and ambulatory with steady gait. Removed ID band and IV intact without complications. Patient packet provided for ambulance personnel. Patient transported by [facility] unit #[id number] in stable condition.
== END 2019-07-07 02:43 ==
LOC: EDBD 13:22 → EMR 13:36
DX: T51.2X2A Toxic effect of 2-Propanol, intentional self-harm, initial encounter (principal); Y92.9 Unspecified place or not applicable; F10.129 Alcohol abuse with intoxication, unspecified; F32.9 Major depressive disorder, single episode, unspecified
CPT/HCPCS: 36415; 80053; 80307; 83930; 85007; 85025; 93005; 96361; 96374; 96375; 96376; G0480; G0481; J2405; J7030; S0028; Z7502; 99285

== ENCOUNTER 2019-08-26 00:26 | Emergency (ER) | payer MEDICAID ==
[~2019-08-26] VITALS: Ht 172.7 cm; Wt 65.8 kg
--- NOTE | 2019-08-26 00:48 | Emergency Room Report ---
History of Present Illness General Chief Complaint: Alcohol Intoxication Source: Patient Present Illness HPI Disclaimer: Please note that this report is being documented using [employer] technology. This can lead to erroneous entry secondary to incorrect interpretation by the dictating instrument. HPI: 33-year-old male history of alcohol abuse presents from home by EMS complaining of alcohol intoxication. Patient states he has been on a drinking binge drinking wine daily for the past 3 to 4 days not eating much and not getting much hydration. He states he was feeling sick at home but denies any recent vomiting. Denies cough, fever, chest pain. No history of delirium tremens or withdrawal seizures. Last drink was 3 hours ago. He is awake answering questions appropriately. He is requesting something to eat. Denies trauma. Patient has completed detox programs in the past and states he is in AA. PMH: Alcohol abuse PSH: Reviewed Allergies: Denied Social Hx: Daily alcohol use Allergies: Coded Allergies: No Known Allergies (Unverified , 08/03/18) COVID-19 Screening Contact w/high risk pt: No Recent Travel to affected area: No Experienced COVID-19 symptoms?: No COVID-19 Testing performed DEVELOPMENTAL THERAPIST: No Review of Systems All Other Systems: negative except mentioned in HPI Physical Exam Vital Signs Date Time Temp Pulse Resp B/P (MAP) Pulse Ox O2 Delivery O2 Flow Rate FiO2 08/26/19 00:28 98.1 88 16 129/78 (95) 98 Room Air General: Awake and alert, no acute distress HEENT: NC/AT. EOMI. Cardiovascular: RRR. S1 and S2 normal. No murmur appreciated Resp: Normal work of breathing. No cough, wheezing or crackles appreciated Abdomen: Abdomen is soft, nondistended. Nontender Skin: Intact. No abrasions, laceration or rash over the exposed skin MSK: Normal tone and bulk. Moving all extremities. No obvious deformity. Slightly unsteady gait though maintaining his posture. Neuro: Awake and alert. Mentating appropriately. Appears slightly intoxicated. Medical Decision Making Diagnostic Impression: Primary Impression: Acute alcoholic intoxication ER Course This a 33-year-old male presenting for evaluation of acute alcohol intoxication. Last drink 3 hours ago. No sign of withdrawal; vital signs are within normal limits. He is requesting something to eat and drink and answering questions appropriately. He does appear moderately intoxicated will be allowed to metabolize in the emergency department. Do not believe the patient requires emergent labs or imaging at this time. 0430: Patient was able to eat and drink in the emergency department. He is ambulating with steady gait after monitoring. Continues to improve. Stable for outpatient follow-up. Will start him on thiamine and folic acid. Provided resources to follow-up on an outpatient basis for alcohol abuse. States he follows with AA and will try to connect again with a sponsor. Discussed reasons to return to the ED. He understands and agrees with treatment plan. Last Vital Signs Date Time Temp Pulse Resp B/P (MAP) Pulse Ox O2 Delivery O2 Flow Rate FiO2 08/26/19 00:28 98.1 88 16 129/78 (95) 98 Room Air Disposition: HOME, SELF-CARE Condition: Stable Scripts Folic Acid* (FOLIC ACID*) 1 Mg Tablet 1 MG ORAL DAILY, #30 TAB Prov: Raoul Shine MD 08/26/19 Thiamine Hcl* (VITAMIN B-1*) 100 Mg Tablet 100 MG ORAL DAILY, #30 TAB 0 Refills Prov: Raoul Shine MD 08/26/19 Raoul Shine MD Aug 26, 2019 00:48
[2019-08-26 01:00] VITALS: BP 129/78
[2019-08-26] MEDS ORDERED: FOLIC ACID1 MG ORAL (02:34)
[2019-08-26] MEDS ORDERED: VITAMIN B-1100 MG ORAL (02:34)
[2019-08-26 03:00] VITALS: BP 118/76
[2019-08-26 04:38] VITALS: BP 124/85
== END 2019-08-26 04:40 | disposition home or self-care (01) ==
LOC: EDBD 00:26 → EMR 01:48
DX: F10.129 Alcohol abuse with intoxication, unspecified (principal)
CPT/HCPCS: 99283

== ENCOUNTER 2019-09-15 05:34 | Emergency (ER) | payer MEDICAID ==
[~2019-09-15] VITALS: Ht 177.8 cm; Wt 79.4 kg
[~2019-09-15 05:34] MED LIST changes: +FOLIC ACID1 MG ORAL; +VITAMIN B-1100 MG ORAL
--- NOTE | 2019-09-15 05:45 | NUR ---
ED Nurse Note: patient walked in from home d/t nausea and vomiting caused by binging on ETOH for a few days. Patient aaox 4 and ambulatory with steady gait. Patient placed on campus monitor. No acute distress noted during assessment.
[2019-09-15 05:46] VITALS: BP 127/82
--- NOTE | 2019-09-15 05:51 | Emergency Room Report ---
History of Present Illness General Chief Complaint: Nausea, Vomiting, and Diarrhea Source: Patient Present Illness HPI Disclaimer: Please note that this report is being documented using [employer] technology. This can lead to erroneous entry secondary to incorrect interpretation by the dictating instrument. HPI: 33-year-old male history of alcohol abuse presents for evaluation of vomiting. Patient states he has been on a drinking binge for several days. Last drank approximately 10 hours ago. He states he is unable to hold down any food or even drink water at this point. Reports abdominal cramping from vomiting but otherwise denies lower abdominal pain, dysuria, hematuria, flank pain, testicular pain, chest pain, shortness of breath, fever, chills. Denies drug use. Denies history of abdominal surgery. PMH: Alcohol abuse PSH: Denied Allergies: Denied Social Hx: Daily alcohol use, denies tobacco or drug use Allergies: Coded Allergies: No Known Allergies (Unverified , 08/03/18) COVID-19 Screening Contact w/high risk pt: No Recent Travel to affected area: No Experienced COVID-19 symptoms?: No COVID-19 Testing performed GOVERNMENT PROPERTY INSPECTOR: No Review of Systems All Other Systems: negative except mentioned in HPI Physical Exam Vital Signs Date Time Temp Pulse Resp B/P (MAP) Pulse Ox O2 Delivery O2 Flow Rate FiO2 09/15/19 05:38 98.4 107 16 125/71 (89) 99 Room Air General: Awake and alert, appears uncomfortable, vomiting HEENT: NC/AT. EOMI. Cardiovascular: Tachycardic. S1 and S2 normal. No murmur appreciated Resp: Normal work of breathing. No cough, wheezing or crackles appreciated Abdomen: Abdomen is soft, nondistended. Mild tenderness diffusely. No guarding , no rebound. Skin: Intact. No abrasions, laceration or rash over the exposed skin MSK: Normal tone and bulk. Moving all extremities. No obvious deformity. Neuro: Awake and alert. Mentating appropriately. Medical Decision Making Diagnostic Impression: Primary Impression: Vomiting Additional Impressions: Gastritis Alcohol abuse ER Course This is a 33-year-old male presenting for evaluation of vomiting after significant alcohol use. Differential includes was not limited to alcohol intoxication, gastritis, gastroenteritis, pancreatitis, cholecystitis, enteritis , food poisoning, UTI, pyelonephritis, esophagitis to name a few. Patient was placed on monitor, IV line established, IV fluids and antiemetics provided and broad labs ordered. 0800: Patient received 2 L IV fluids and labs have returned within normal limits. He is tolerating p.o. currently and states he feels a little bit better. He is requesting a prescription for Ativan given his jitteriness when he stops drinking. He denies history of delirium tremens or alcohol withdrawal seizures. He has completed alcohol detox and rehab programs in the past but is not currently interested in using any of the services. He is pacing around his room and does seem anxious. He does not use Ativan regularly. Cures report completed shows sporadic prescriptions but none since May 2019. I discussed with him that he should have mental health follow-up and referred him to outpatient services regarding anxiety and alcohol abuse. He was given 1 mg of Ativan in the ED however explained to him that I could not write him a prescription as I believe he requires long-term mental health counseling and close monitoring. Patient understands. I will prescribe Zofran, folic acid, thiamine and Pepcid. Instructed to return with new or worsening symptoms. Laboratory Tests Test 09/15/19 05:55 09/15/19 06:07 White Blood Count 11.6 K/UL (4.8-10.8) H Red Blood Count 5.76 M/UL (4.70-6.10) Hemoglobin 17.4 G/DL (14.2-18.0) Hematocrit 50.8 % (42.0-52.0) Mean Corpuscular Volume 88 FL (80-99) Mean Corpuscular Hemoglobin 30.3 PG (27.0-31.0) Mean Corpuscular Hemoglobin Concent 34.3 G/DL (32.0-36.0) Red Cell Distribution Width 11.6 % (11.6-14.8) Platelet Count 326 K/UL (150-450) Mean Platelet Volume 5.9 FL (6.5-10.1) L Neutrophils (%) (Auto) 68.5 % (45.0-75.0) Lymphocytes (%) (Auto) 22.2 % (20.0-45.0) Monocytes (%) (Auto) 8.1 % (1.0-10.0) Eosinophils (%) (Auto) 0.2 % (0.0-3.0) Basophils (%) (Auto) 1.1 % (0.0-2.0) Sodium Level 141 MMOL/L (136-145) Potassium Level 3.6 MMOL/L (3.5-5.1) Chloride Level 101 MMOL/L (98-107) Carbon Dioxide Level 26 MMOL/L (21-32) Anion Gap 14 mmol/L (5-15) Blood Urea Nitrogen 12 mg/dL (7-18) Creatinine 1.0 MG/DL (0.55-1.30) Estimated Glomerular Filtration Rate > 60 mL/min (>60) Glucose Level 128 MG/DL (74-106) H Calcium Level 8.9 MG/DL (8.5-10.1) Total Bilirubin 0.6 MG/DL (0.2-1.0) Aspartate Amino Transferase (AST) 42 U/L (15-37) H Alanine Aminotransferase (ALT) 106 U/L (12-78) H Alkaline Phosphatase 67 U/L (46-116) Total Protein 8.0 G/DL (6.4-8.2) Albumin 4.8 G/DL (3.4-5.0) Globulin 3.2 g/dL Albumin/Globulin Ratio 1.5 (1.0-2.7) Lipase 109 U/L (73-393) Serum Alcohol 62 mg/dL Urine Color Yellow Urine Appearance Clear Urine pH 7 (4.5-8.0) Urine Specific [place] 1.010 (1.005-1.035) Urine Protein Negative (NEGATIVE) Urine Glucose (UA) Negative (NEGATIVE) Urine Ketones 2+ (NEGATIVE) H Urine Blood Negative (NEGATIVE) Urine Nitrite Negative (NEGATIVE) Urine Bilirubin Negative (NEGATIVE) Urine Urobilinogen 1 MG/DL (0.0-1.0) H Urine Leukocyte Esterase Negative (NEGATIVE) Urine Opiates Screen Negative (NEGATIVE) Urine Barbiturates Screen Negative (NEGATIVE) Phencyclidine (PCP) Screen Negative (NEGATIVE) Urine Amphetamines Screen Negative (NEGATIVE) Urine Benzodiazepines Screen Negative (NEGATIVE) Urine Cocaine Screen Negative (NEGATIVE) Urine Marijuana (THC) Screen Negative (NEGATIVE) Last Vital Signs Date Time Temp Pulse Resp B/P (MAP) Pulse Ox O2 Delivery O2 Flow Rate FiO2 09/15/19 05:46 98.4 105 20 127/82 98 Room Air Disposition: HOME, SELF-CARE Condition: Improved Scripts Famotidine* (Pepcid 20mg tablet*) 20 Mg Tablet 20 MG ORAL DAILY, #30 TAB 0 Refills Prov: Raoul Shine MD 09/15/19 Ondansetron Odt* (ZOFRAN ODT*) 4 Mg Tab.rapdis 4 MG BC EVERY 6 HOURS PRN for Nausea & Vomiting, #20 TAB 0 Refills Prov: Raoul Shine MD 09/15/19 Folic Acid* (FOLIC ACID*) 1 Mg Tablet 1 MG ORAL DAILY, #30 TAB Prov: Raoul Shine MD 09/15/19 Thiamine Hcl* (VITAMIN B-1*) 100 Mg Tablet 100 MG ORAL DAILY, #30 TAB 0 Refills Prov: Raoul Shine MD 09/15/19 [facility] (PCP) Raoul Shine MD Sep 15, 2019 05:51
--- NOTE | 2019-09-15 06:03 | NUR ---
ED Nurse Note: blood sent to lab, patient given urinal for urine sample.
--- NOTE | 2019-09-15 06:09 | NUR ---
ED Nurse Note: Urine collected and sent to lab
[2019-09-15 06:14] LABS: BASOPHILS % (AUTO) 1.1 % (0.0-2.0); EOSINOPHILS % (AUTO) 0.2 % (0.0-3.0); HEMATOCRIT 50.8 % (42.0-52.0); HEMOGLOBIN 17.4 G/DL (14.2-18.0); LYMPHOCYTES % (AUTO) 22.2 % (20.0-45.0); MEAN CORPUSCULAR VOLUME 88 FL (80-99); MONOCYTES % (AUTO) 8.1 % (1.0-10.0); NEUTROPHILS % (AUTO) 68.5 % (45.0-75.0); PLATELET COUNT 326 K/UL (150-450); RED BLOOD COUNT 5.76 M/UL (4.70-6.10); RED CELL DISTRIBUTION WIDTH 11.6 % (11.6-14.8); WHITE BLOOD COUNT 11.6 K/UL (4.8-10.8)
[2019-09-15 06:21] LABS: APPEARANCE,URINE CLEAR; BILIRUBIN, URINE NEGATIVE (NEGATIVE); GLUCOSE, URINE (UA) NEGATIVE (NEGATIVE); KETONES,URINE 2+ (NEGATIVE); LEUKOCYTE ESTERASE ,URINE NEGATIVE (NEGATIVE); NITRITE,URINE NEGATIVE (NEGATIVE); PH,URINE 7 (4.5-8.0); UROBILINOGEN,URINE 1 MG/DL (0.0-1.0)
[2019-09-15 06:25] LABS: ANION GAP 14 mmol/L (5-15); BLOOD UREA NITROGEN 12 mg/dL (7-18); CALCIUM 8.9 MG/DL (8.5-10.1); CARBON DIOXIDE 26 MMOL/L (21-32); CHLORIDE 101 MMOL/L (98-107); POTASSIUM 3.6 MMOL/L (3.5-5.1); SODIUM 141 MMOL/L (136-145)
[2019-09-15 06:26] LABS: COLOR,URINE YELLOW; PROTEIN,URINE NEGATIVE (NEGATIVE)
[2019-09-15 06:33] LABS: ALANINE AMINOTRANSFERASE 106 U/L (12-78); ALBUMIN 4.8 G/DL (3.4-5.0); ALBUMIN/GLOBULIN RATIO 1.5 (1.0-2.7); ALKALINE PHOSPHATASE 67 U/L (46-116); ASPARTATE AMINO TRANSFERASE 42 U/L (15-37); BILIRUBIN,TOTAL 0.6 MG/DL (0.2-1.0)
--- NOTE | 2019-09-15 07:02 | NUR ---
HAND-OFF: Report given to JOSE MARTIN Waters.
[2019-09-15] MEDS ORDERED: FAMOTIDINE20 MG ORAL (07:12)
[2019-09-15] MEDS ORDERED: FOLIC ACID1 MG ORAL (07:12)
[2019-09-15] MEDS ORDERED: VITAMIN B-1100 MG ORAL (07:12)
[2019-09-15] MEDS ORDERED: ONDANSETRON ODT4 MG BC (07:12)
--- NOTE | 2019-09-15 07:12 | NUR ---
ED Nurse Note: Report received from JOSE MARTIN Bishop. Pt resting comfortably in bed with no signs of distress. A+Ox4. Denies pain/SOB. All vitals stable as documented. Water provided for patient
[2019-09-15] MEDS ORDERED: LORazepam 1mg tab ONE (08:05)
[2019-09-15 08:10] VITALS: BP 131/88
[2019-09-15] MEDS ORDERED: LORazepam 1mg tab ORAL ONE (08:15)
== END 2019-09-15 08:10 | disposition home or self-care (01) ==
LOC: EMR 05:50
DX: R11.10 Vomiting, unspecified (principal); K29.70 Gastritis, unspecified, without bleeding; F10.10 Alcohol abuse, uncomplicated; R00.0 Tachycardia, unspecified
CPT/HCPCS: 36415; 80053; 80307; 81003; 83690; 85025; 96361; 96374; 96375; G0480; J2405; J7030; S0028; Z7502; 99284

== ENCOUNTER 2019-09-17 15:21 | Emergency (ER) | payer MEDICAID ==
[~2019-09-17] VITALS: Ht 177.8 cm; Wt 81.6 kg
[~2019-09-17 15:21] MED LIST changes: +ONDANSETRON ODT4 MG BC
[2019-09-17 15:31] VITALS: BP 128/80
[2019-09-17] MEDS ORDERED: Thiamine HCl 100 MG in D5W 55 ML IVPB STA (15:51)
--- NOTE | 2019-09-17 15:55 | Emergency Room Report ---
History of Present Illness General Chief Complaint: Nausea Source: Patient Present Illness HPI Patient presents with vomiting and passing dark stools after drinking. He drinks no hard liquor. He has been through withdrawal 3 months ago without hospitalization. He denies any seizures. He is unable to keep down liquids at this time. He is complaining about epigastric pain also. He rates the pain 10/ 10 and burning without radiation. He is not take any medication for the pain but tried Pepto-Bismol earlier and vomited this up. He denies coffee grounds or hematemesis. He denies fevers or chills but sometimes breaks out in sweats when he is vomiting. No sore throat, chest pain, palpitations, diarrhea, dysuria, shortness of breath , joint pain, rashes, depression, anxiety, visual changes, dizziness, headache. 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: PMH: Agreed; PSxH: Agreed Review of Systems All Other Systems: negative except mentioned in HPI Physical Exam Vital Signs Date Time Temp Pulse Resp B/P (MAP) Pulse Ox O2 Delivery O2 Flow Rate FiO2 09/17/19 15:31 98.2 108 17 128/80 (96) 97 Room Air Sp02 EP Interpretation: reviewed, normal General Appearance: well appearing, non-toxic, mild distress - Unable to stop vomiting, other Head: normocephalic Eyes: bilateral eye PERRL, bilateral eye EOMI, bilateral eye Scleral Injection ENT: moist mucus membranes Neck: supple Respiratory: lungs clear, normal breath sounds Cardiovascular #1: regular rate, rhythm Cardiovascular #2: 2+ radial (R) Gastrointestinal: no mass, non-distended, no guarding, no rebound, tenderness - Reported epigastric, decreased bowel sounds Genitourinary: no CVA tenderness Musculoskeletal: back normal, normal range of motion, gait/station normal Neurologic: alert, oriented x3, grossly normal Psychiatric: mood/affect normal Skin: no rash, warm/dry Medical Decision Making Diagnostic Impression: Primary Impression: Gastritis Qualified Codes: K29.20 - Alcoholic gastritis without bleeding Additional Impression: Acute alcoholic intoxication Qualified Codes: F10.929 - Alcohol use, unspecified with intoxication, unspecified ER Course Patient presents with nausea vomiting dark stools and epigastric pain after ingesting alcohol. Differential includes alcoholic gastritis, upper GI bleed, gastroenteritis, pancreatitis amongst others. Evaluation with EKG, chest x-ray and labs. Patient treated with IV hydration, Reglan, Benadryl and Pepcid. EKG without injury. Chest x-ray clear. Labs significant for slightly elevated white count, normal hemoglobin and essentially normal CMP. Lipase normal. Blood alcohol elevated. Patient had a repeat episode of vomiting. Phenergan ordered IV. He requested to eat at that time but was told to wait until his stomach was better. The pain is improved. Patient tolerated oral intake. No more vomiting. Discussed findings and treatment plan with patient. Patient stable for outpatient observation and treatment. Laboratory Tests Test 09/17/19 16:04 09/17/19 16:06 09/17/19 17:10 White Blood Count 13.2 K/UL (4.8-10.8) H Red Blood Count 5.95 M/UL (4.70-6.10) Hemoglobin 17.5 G/DL (14.2-18.0) Hematocrit 52.3 % (42.0-52.0) H Mean Corpuscular Volume 88 FL (80-99) Mean Corpuscular Hemoglobin 29.4 PG (27.0-31.0) Mean Corpuscular Hemoglobin Concent 33.4 G/DL (32.0-36.0) Red Cell Distribution Width 11.8 % (11.6-14.8) Platelet Count 316 K/UL (150-450) Mean Platelet Volume 6.9 FL (6.5-10.1) Neutrophils (%) (Auto) 71.6 % (45.0-75.0) Lymphocytes (%) (Auto) 23.1 % (20.0-45.0) Monocytes (%) (Auto) 3.9 % (1.0-10.0) Eosinophils (%) (Auto) 0.1 % (0.0-3.0) Basophils (%) (Auto) 1.3 % (0.0-2.0) Sodium Level 140 MMOL/L (136-145) Potassium Level 3.8 MMOL/L (3.5-5.1) Chloride Level 102 MMOL/L (98-107) Carbon Dioxide Level 22 MMOL/L (21-32) Anion Gap 16 mmol/L (5-15) H Blood Urea Nitrogen 14 mg/dL (7-18) Creatinine 1.0 MG/DL (0.55-1.30) Estimated Glomerular Filtration Rate > 60 mL/min (>60) Glucose Level 127 MG/DL (74-106) H Calcium Level 9.0 MG/DL (8.5-10.1) Total Bilirubin 0.6 MG/DL (0.2-1.0) Aspartate Amino Transferase (AST) 40 U/L (15-37) H Alanine Aminotransferase (ALT) 77 U/L (12-78) Alkaline Phosphatase 75 U/L (46-116) Troponin I 0.000 ng/mL (0.000-0.056) Total Protein 7.8 G/DL (6.4-8.2) Albumin 4.4 G/DL (3.4-5.0) Globulin 3.4 g/dL Albumin/Globulin Ratio 1.3 (1.0-2.7) Salicylates Level 0.8 ug/mL (2.8-20) L Acetaminophen Level < 2 MCG/ML (10-30) L Serum Alcohol 164 mg/dL Lipase 135 U/L (73-393) Urine Color Yellow Urine Appearance Clear Urine pH 6 (4.5-8.0) Urine Specific [place] 1.015 (1.005-1.035) Urine Protein Negative (NEGATIVE) Urine Glucose (UA) Negative (NEGATIVE) Urine Ketones 1+ (NEGATIVE) H Urine Blood Negative (NEGATIVE) Urine Nitrite Negative (NEGATIVE) Urine Bilirubin Negative (NEGATIVE) Urine Urobilinogen Normal MG/DL (0.0-1.0) Urine Leukocyte Esterase 1+ (NEGATIVE) H Urine RBC 0-2 /HPF (0 - 0) H Urine WBC 0-2 /HPF (0 - 0) Urine Squamous Epithelial Cells None /LPF (NONE/OCC) Urine Bacteria Few /HPF (NONE) Urine Opiates Screen Negative (NEGATIVE) Urine Barbiturates Screen Negative (NEGATIVE) Phencyclidine (PCP) Screen Negative (NEGATIVE) Urine Amphetamines Screen Negative (NEGATIVE) Urine Benzodiazepines Screen Negative (NEGATIVE) Urine Cocaine Screen Negative (NEGATIVE) Urine Marijuana (THC) Screen Negative (NEGATIVE) EKG Diagnostic Results Rate: normal Rhythm: NSR ST Segments: no acute changes - Nonspecific ST-T wave changes Rhythm Strip Diag. Results EP Interpretation: yes Rhythm: NSR, no PVC's, no ectopy Chest X-Ray Diagnostic Results Chest X-Ray Diagnostic Results : Chest X-Ray Ordered: Yes # of Views/Limited/Complete: 1 View Indication: Other EP Interpretation: Yes Interpretation: no consolidation, no effusion, no pneumothorax Impression: No acute disease Electronically Signed by: Electronically signed by Prabhu Dailey MD Last Vital Signs Date Time Temp Pulse Resp B/P (MAP) Pulse Ox O2 Delivery O2 Flow Rate FiO2 09/17/19 20:49 98.0 88 18 122/76 98 Room Air Status: improved Disposition: HOME, SELF-CARE Condition: Improved Scripts Promethazine HCl (Promethegan) 25 Mg Supp.rect 25 MG RECTAL Q8HR PRN for Nausea & Vomiting, #6 SUPP 1 Refill Prov: Prabhu Dailey MD 09/17/19 Promethazine Hcl* (PHENERGAN*) 25 Mg Tablet 25 MG ORAL Q8HR, #15 TAB 0 Refills Prov: Prabhu Dailey MD 09/17/19 Famotidine* (Pepcid 20mg tablet*) 20 Mg Tablet 20 MG ORAL DAILY, #20 TAB 0 Refills Prov: Prabhu Dailey MD 09/17/19 Prabhu Dailey MD Sep 17, 2019 15:55
[2019-09-17] MEDS ORDERED: Metoclopramide 10mg/2ml Inj IVP ONE (16:00)
[2019-09-17] MEDS ORDERED: DiphenhydrAMINE 50mg/ml Inj IVP ONE (16:00)
[2019-09-17 16:27] LABS: BASOPHILS % (AUTO) 1.3 % (0.0-2.0); EOSINOPHILS % (AUTO) 0.1 % (0.0-3.0); HEMATOCRIT 52.3 % (42.0-52.0); HEMOGLOBIN 17.5 G/DL (14.2-18.0); LYMPHOCYTES % (AUTO) 23.1 % (20.0-45.0); MEAN CORPUSCULAR VOLUME 88 FL (80-99); MONOCYTES % (AUTO) 3.9 % (1.0-10.0); NEUTROPHILS % (AUTO) 71.6 % (45.0-75.0); PLATELET COUNT 316 K/UL (150-450); RED BLOOD COUNT 5.95 M/UL (4.70-6.10); RED CELL DISTRIBUTION WIDTH 11.8 % (11.6-14.8); WHITE BLOOD COUNT 13.2 K/UL (4.8-10.8)
[2019-09-17 16:45] LABS: ANION GAP 16 mmol/L (5-15); BLOOD UREA NITROGEN 14 mg/dL (7-18); CARBON DIOXIDE 22 MMOL/L (21-32); CHLORIDE 102 MMOL/L (98-107); POTASSIUM 3.8 MMOL/L (3.5-5.1); SODIUM 140 MMOL/L (136-145)
[2019-09-17 16:49] LABS: ALANINE AMINOTRANSFERASE 77 U/L (12-78); ALBUMIN 4.4 G/DL (3.4-5.0); ALBUMIN/GLOBULIN RATIO 1.3 (1.0-2.7); ALKALINE PHOSPHATASE 75 U/L (46-116); ASPARTATE AMINO TRANSFERASE 40 U/L (15-37); BILIRUBIN,TOTAL 0.6 MG/DL (0.2-1.0)
--- NOTE | 2019-09-17 17:07 | Diagnostic Imaging Report ---
EXAM: XR Chest, 1 View CLINICAL HISTORY: ALOC TECHNIQUE: Frontal view of the chest. COMPARISON: None FINDINGS: Hardware: None. Lungs/pleura: Normal. No focal consolidation. No pleural effusion or pneumothorax. Heart/mediastinum: Normal. No cardiomegaly. Soft tissues: Unremarkable. Bones: No acute fracture. Upper abdomen: Normal. IMPRESSION: No acute disease identified.
[2019-09-17 17:40] LABS: APPEARANCE,URINE CLEAR; BILIRUBIN, URINE NEGATIVE (NEGATIVE); GLUCOSE, URINE (UA) NEGATIVE (NEGATIVE); KETONES,URINE 1+ (NEGATIVE); LEUKOCYTE ESTERASE ,URINE 1+ (NEGATIVE); NITRITE,URINE NEGATIVE (NEGATIVE); PH,URINE 6 (4.5-8.0); PROTEIN,URINE NEGATIVE (NEGATIVE); UROBILINOGEN,URINE NORMAL MG/DL (0.0-1.0)
[2019-09-17 17:43] LABS: COLOR,URINE YELLOW
[2019-09-17 18:00] VITALS: BP 124/68
[2019-09-17] MEDS ORDERED: Promethazine HCl 25 MG in NS 55 ML IVPB STA (19:14)
[2019-09-17 20:00] VITALS: BP 129/88
[2019-09-17] MEDS ORDERED: PHENERGAN25 M1 ORAL (20:30)
[2019-09-17] MEDS ORDERED: PHENERGAN SUPP25 MG RECTAL (20:30)
[2019-09-17] MEDS ORDERED: FAMOTIDINE20 MG ORAL (20:30)
[2019-09-17 20:49] VITALS: BP 122/76
== END 2019-09-17 20:52 | disposition home or self-care (01) ==
LOC: EMR 15:40
DX: K29.20 Alcoholic gastritis without bleeding (principal); F10.129 Alcohol abuse with intoxication, unspecified
CPT/HCPCS: 36415; 71045; 80053; 80307; 81003; 83690; 84484; 85025; 93005; 96361; 96365; 96367; 96375; G0480; G0481; J1200; J2550; J2765; J7030; S0028; Z7502; 99284

== ENCOUNTER 2019-10-02 06:19 | Emergency (ER) | payer MEDICAID ==
[~2019-10-02] VITALS: Ht 177.8 cm; Wt 81.6 kg
[~2019-10-02 06:19] MED LIST changes: +PHENERGAN SUPP25 MG RECTAL; +PHENERGAN25 M1 ORAL
[2019-10-02 06:38] VITALS: BP 133/75
[2019-10-02] MEDS ORDERED: Ondansetron ODT 8mg tab ORAL ONE (06:45)
[2019-10-02 07:16] LABS: BASOPHILS % (AUTO) 1.3 % (0.0-2.0); EOSINOPHILS % (AUTO) 0.1 % (0.0-3.0); HEMATOCRIT 55.1 % (42.0-52.0); LYMPHOCYTES % (AUTO) 26.7 % (20.0-45.0); MEAN CORPUSCULAR VOLUME 88 FL (80-99); MONOCYTES % (AUTO) 8.1 % (1.0-10.0); NEUTROPHILS % (AUTO) 63.8 % (45.0-75.0); PLATELET COUNT 287 K/UL (150-450); RED BLOOD COUNT 6.29 M/UL (4.70-6.10); RED CELL DISTRIBUTION WIDTH 11.1 % (11.6-14.8)
[2019-10-02 07:24] LABS: ANION GAP 13 mmol/L (5-15); BLOOD UREA NITROGEN 15 mg/dL (7-18); CALCIUM 9.3 MG/DL (8.5-10.1); CARBON DIOXIDE 28 MMOL/L (21-32); CHLORIDE 96 MMOL/L (98-107); CREATININE 1.2 MG/DL (0.55-1.30); POTASSIUM 3.5 MMOL/L (3.5-5.1); SODIUM 137 MMOL/L (136-145)
[2019-10-02 07:27] VITALS: BP 134/71
[2019-10-02 07:27] LABS: HEMOGLOBIN 18.7 G/DL (14.2-18.0)
[2019-10-02 07:29] LABS: ALANINE AMINOTRANSFERASE 92 U/L (12-78); ALBUMIN 4.7 G/DL (3.4-5.0); ALBUMIN/GLOBULIN RATIO 1.5 (1.0-2.7); ALKALINE PHOSPHATASE 63 U/L (46-116); ASPARTATE AMINO TRANSFERASE 31 U/L (15-37); BILIRUBIN,TOTAL 0.6 MG/DL (0.2-1.0)
--- NOTE | 2019-10-02 07:29 | Emergency Room Report ---
History of Present Illness General Chief Complaint: Nausea Source: Patient Present Illness HPI This patient states that he has a "drinking problem." Patient states that he went on a 3-day drinking binge. He states that today he feels terrible. He states he is so nauseated that he is unable to even keep down water. He states that this has happened to him previously. He also gets diffuse crampy abdominal pain. He denies recent illness. He denies fever or chills. He denies dysuria or hematuria. He denies cough or congestion. He denies chest pain or shortness of breath. He has no other complaints. 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 Patient History Past Medical History: none, see triage record Social History: Reports: alcohol use; Denies: smoking, drug use Reviewed Nursing Documentation: PMH: Agreed; PSxH: Agreed Review of Systems All Other Systems: negative except mentioned in HPI Physical Exam Vital Signs Date Time Temp Pulse Resp B/P (MAP) Pulse Ox O2 Delivery O2 Flow Rate FiO2 10/02/19 06:25 97.9 111 16 132/87 (102) 98 Room Air Sp02 EP Interpretation: reviewed, normal General Appearance: no apparent distress, alert, GCS 15, non-toxic Head: normocephalic, atraumatic Eyes: bilateral eye normal inspection, bilateral eye PERRL ENT: hearing grossly normal, normal pharynx, no angioedema, normal voice Neck: full range of motion, supple/symm/no masses Respiratory: chest non-tender, lungs clear, normal breath sounds, no respiratory distress, no retraction, no accessory muscle use, speaking full sentences Cardiovascular #1: regular rate, rhythm, no edema Gastrointestinal: normal bowel sounds, non tender, soft, non-distended, no guarding, no rebound Rectal: deferred Musculoskeletal: back normal, normal range of motion, gait/station normal, non- tender Neurologic: alert, motor strength/tone normal, oriented x3, sensory intact, responsive, speech normal Psychiatric: judgement/insight normal, memory normal, mood/affect normal, no suicidal/homicidal ideation Skin: no rash, normal color Medical Decision Making Diagnostic Impression: Primary Impression: Nausea and vomiting in adult patient Additional Impressions: Dehydration EtOH dependence ER Course This patient admits to having alcohol dependence. He presents with recurrent nausea and vomiting that is likely secondary to heavy EtOH use. He is given IV fluids and Zofran. He had significant improvement in his symptoms. He was given a local resources for rehabilitation and educated on the dangers of alcohol abuse and dependence. He indicated understanding and states that he would consider rehab in the future. He is given close return precautions and follow-up instructions. Laboratory Tests Test 10/02/19 06:50 10/02/19 07:11 White Blood Count 13.0 K/UL (4.8-10.8) H Red Blood Count 6.29 M/UL (4.70-6.10) H Hemoglobin 18.7 G/DL (14.2-18.0) *H Hematocrit 55.1 % (42.0-52.0) H Mean Corpuscular Volume 88 FL (80-99) Mean Corpuscular Hemoglobin 29.7 PG (27.0-31.0) Mean Corpuscular Hemoglobin Concent 33.9 G/DL (32.0-36.0) Red Cell Distribution Width 11.1 % (11.6-14.8) L Platelet Count 287 K/UL (150-450) Mean Platelet Volume 6.4 FL (6.5-10.1) L Neutrophils (%) (Auto) 63.8 % (45.0-75.0) Lymphocytes (%) (Auto) 26.7 % (20.0-45.0) Monocytes (%) (Auto) 8.1 % (1.0-10.0) Eosinophils (%) (Auto) 0.1 % (0.0-3.0) Basophils (%) (Auto) 1.3 % (0.0-2.0) Sodium Level 137 MMOL/L (136-145) Potassium Level 3.5 MMOL/L (3.5-5.1) Chloride Level 96 MMOL/L (98-107) L Carbon Dioxide Level 28 MMOL/L (21-32) Anion Gap 13 mmol/L (5-15) Blood Urea Nitrogen 15 mg/dL (7-18) Creatinine 1.2 MG/DL (0.55-1.30) Estimated Glomerular Filtration Rate > 60 mL/min (>60) Glucose Level 117 MG/DL (74-106) H Calcium Level 9.3 MG/DL (8.5-10.1) Total Bilirubin 0.6 MG/DL (0.2-1.0) Aspartate Amino Transferase (AST) 31 U/L (15-37) Alanine Aminotransferase (ALT) 92 U/L (12-78) H Alkaline Phosphatase 63 U/L (46-116) Total Protein 7.9 G/DL (6.4-8.2) Albumin 4.7 G/DL (3.4-5.0) Globulin 3.2 g/dL Albumin/Globulin Ratio 1.5 (1.0-2.7) Lipase 100 U/L (73-393) Thyroid Stimulating Hormone (TSH) 22.066 uiU/mL (0.358-3.740) Free Thyroxine 1.13 NG/DL (0.76-1.46) Free Triiodothyronine 3.8 pg/mL (2.3-4.2) Urine Opiates Screen Negative (NEGATIVE) Urine Barbiturates Screen Negative (NEGATIVE) Phencyclidine (PCP) Screen Negative (NEGATIVE) Urine Amphetamines Screen Negative (NEGATIVE) Urine Benzodiazepines Screen Negative (NEGATIVE) Urine Cocaine Screen Negative (NEGATIVE) Urine Marijuana (THC) Screen Negative (NEGATIVE) Last Vital Signs Date Time Temp Pulse Resp B/P (MAP) Pulse Ox O2 Delivery O2 Flow Rate FiO2 10/02/19 06:38 97.9 102 18 133/75 99 Room Air Status: improved Disposition: HOME, SELF-CARE Condition: Improved [facility]errals: [facility] (PCP) Patient Instructions: Dehydration, Adult, Nausea and Vomiting, Adult Michelle Franco DO Oct 02, 2019 07:29
[2019-10-02] MEDS ORDERED: ZOFRAN ODT8 MG ORAL (08:40)
[2019-10-02 08:48] VITALS: BP 144/82
[2019-10-02 08:49] VITALS: BP 144/82
== END 2019-10-02 08:48 | disposition home or self-care (01) ==
LOC: EMR 06:47
DX: R11.2 Nausea with vomiting, unspecified (principal); E86.0 Dehydration; F10.20 Alcohol dependence, uncomplicated
CPT/HCPCS: 36415; 80053; 80307; 83690; 84439; 84443; 84481; 85025; 96360; J7030; Q0162; Z7502; 99284

== ENCOUNTER 2019-10-14 04:25 | Emergency (ER) | payer MEDICAID ==
[~2019-10-14] VITALS: Ht 177.8 cm; Wt 86.2 kg
[~2019-10-14 04:25] MED LIST changes: +ZOFRAN ODT8 MG ORAL
[2019-10-14 04:36] VITALS: BP 153/103
--- NOTE | 2019-10-14 04:36 | NUR ---
ED Nurse Note: Walk-in patient has been dirnking, with complaints of nausea, vomitting x 1 day.
--- NOTE | 2019-10-14 04:49 | Emergency Room Report ---
History of Present Illness General Chief Complaint: Alcohol Intoxication Source: Patient Present Illness HPI Disclaimer: Please note that this report is being documented using DRAGON technology. This can lead to erroneous entry secondary to incorrect interpretation by the dictating instrument. HPI: 33-year-old male history of alcohol abuse presents requesting IV fluids. Patient states he has been drinking with his last drink 8 PM last night. This caused him to vomit multiple times, last approximately 1 hour prior to arrival. Denies hematemesis, abdominal pain, cramping or diarrhea. Denies dysuria hematuria. Denies other drug use. Denies history of alcohol withdrawal seizures, delirium tremens. He does sometimes take Ativan for anxiety. Otherwise denies chest pain, shortness of breath, fever, chills. 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 EOMI. moist mucous membranes. Cardiovascular: RRR. S1 and S2 normal. No murmur appreciated. Brisk capillary refill Resp: Normal work of breathing. No cough, wheezing or crackles appreciated Abdomen: Abdomen is soft, nondistended. Nontender, no masses, no rebound, negative Lee's. Skin: Intact. No abrasions, laceration or rash over the exposed skin. Skin turgor is normal. MSK: Normal tone and bulk. Moving all extremities. No obvious deformity. Neuro: Awake and alert. Mentating appropriately. Medical Decision Making Diagnostic Impression: Primary Impression: Vomiting ER Course 33-year-old male presents for evaluation of vomiting requesting IV hydration. He arrives awake, alert with brisk capillary refill, normal vital signs, and abdomen is nontender. Patient arrives with stable vital signs and has no clinical evidence of severe dehydration. Abdomen is soft and nontender, nondistended. Patient was given oral Zofran and he was able to drink water at bedside. He then fell asleep for approximately 1.5 hours. On awakening he states nausea has resolved. No emesis in the ED. Abdomen remains soft. Do not believe the patient requires emergent labs or imaging at this time. Will discharge with additional Zofran, Pepcid and thiamine and folate. Encouraged him to return to his AA meetings. He states he has a appointment next week to see a psychiatrist. No evidence of acute withdrawal at this time. Patient will be discharged with outpatient follow-up. Instructed to return to ED with new or worsening symptoms. Last Vital Signs Date Time Temp Pulse Resp B/P (MAP) Pulse Ox O2 Delivery O2 Flow Rate FiO2 10/14/19 04:36 98.1 105 20 153/103 (120) 96 Room Air Disposition: HOME, SELF-CARE Condition: Stable Scripts Famotidine* (Pepcid 20mg tablet*) 20 Mg Tablet 20 MG ORAL DAILY, #30 TAB 0 Refills Prov: Raoul Shine MD 10/14/19 Ondansetron Odt* (ZOFRAN ODT*) 4 Mg Tab.rapdis 4 MG BC EVERY 6 HOURS PRN for Nausea & Vomiting, #20 TAB 0 Refills Prov: Raoul Shine MD 10/14/19 Folic Acid* (FOLIC ACID*) 1 Mg Tablet 1 MG ORAL DAILY, #30 TAB Prov: Raoul Shine MD 10/14/19 Thiamine Hcl* (VITAMIN B-1*) 100 Mg Tablet 100 MG ORAL DAILY, #30 TAB 0 Refills Prov: Raoul Shine MD 10/14/19 Referrals: [facility],REFERRING (PCP) Raoul Shine MD Oct 14, 2019 04:49
[2019-10-14] MEDS ORDERED: FAMOTIDINE20 MG ORAL (05:21)
[2019-10-14] MEDS ORDERED: FOLIC ACID1 MG ORAL (05:21)
[2019-10-14] MEDS ORDERED: VITAMIN B-1100 MG ORAL (05:21)
[2019-10-14] MEDS ORDERED: ONDANSETRON ODT4 MG BC (05:21)
[2019-10-14 06:17] VITALS: BP 153/103
--- NOTE | 2019-10-14 06:17 | NUR ---
ER DISCHARGE NOTE: Patient is cleared to be discharged per ERMD, pt is aox4 ambulatory with steady gait and verbalized understanding of discharge instructions, departed with all belongings to taxi.
== END 2019-10-14 06:17 | disposition home or self-care (01) ==
LOC: EMR 04:35
DX: R11.10 Vomiting, unspecified (principal); F41.9 Anxiety disorder, unspecified
CPT/HCPCS: 99282

== ENCOUNTER 2020-03-20 04:33 | Emergency (ER) | payer MEDICAID ==
[~2020-03-20] VITALS: Ht 177.8 cm; Wt 90.7 kg
[2020-03-20] MEDS ORDERED: LORazepam Inj 2mg/ml 1ml IV ONE (05:00)
[2020-03-20] MEDS ORDERED: Mylanta II UD 30ml ORAL ONE (05:00)
[2020-03-20] MEDS ORDERED: Thiamine HCl 100 MG in D5W 55 ML IV ONE (05:00)
--- NOTE | 2020-03-20 05:00 | NUR ---
ED Nurse Note: pt tolerates iv start and lab draw well. no active vomiting. relates last etoh yest afternoon. denies tremors or seizures. no resp distress
--- NOTE | 2020-03-20 05:19 | Emergency Room Report ---
History of Present Illness General Chief Complaint: Abdominal Pain Source: Patient Present Illness HPI Patient presents with 2 days of epigastric pain and vomiting. It is now dry heaves. He has been drinking 2 pints of whiskey a day. Yesterday he had a blackout. He denies any withdrawal seizures. He went through detox in November. He does not have a sponsor at this time. He has been taking Pepto-Bismol and therefore the stools have been dark. Denies any tarry or foul- smelling stool. He denies any coffee grounds or upper GI bleeding. Patient denies suicidal ideation. Does feel anxious. He has a history of depression and is on bupropion. His last drink was at 5 PM yesterday. The patient has had multiple presentations in the past for both alcohol intoxication and vomiting with a diagnosis of gastritis related to alcohol use. The last time he was here was October of this year. Patient denies exposure to Covid positive contacts. No fevers, chills, sore throat, chest pain, palpitations, dysuria, shortness of breath, joint pain, rashes, visual changes, dizziness, headache. 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 14 Reviewed Nursing Documentation: PMH: Agreed; PSxH: Agreed Nursing Documentation-PM Past Medical History: No History, Except For Review of Systems All Other Systems: negative except mentioned in HPI Physical Exam Vital Signs Date Time Temp Pulse Resp B/P (MAP) Pulse Ox O2 Delivery O2 Flow Rate FiO2 03/20/20 04:37 98.2 126 15 121/70 (87) 94 Room Air Sp02 EP Interpretation: reviewed, normal General Appearance: well appearing, no apparent distress, GCS 15 Head: normocephalic Eyes: bilateral eye PERRL, bilateral eye EOMI, bilateral eye Scleral Injection ENT: moist mucus membranes Neck: supple Respiratory: lungs clear, normal breath sounds Cardiovascular #1: tachycardia Cardiovascular #2: 2+ radial (R) Gastrointestinal: normal inspection, normal bowel sounds, no mass, non- distended, no guarding, no rebound, tenderness - Epigastric Genitourinary: no CVA tenderness Musculoskeletal: back normal, normal range of motion, gait/station normal Neurologic: alert, oriented x3, grossly normal Psychiatric: no suicidal/homicidal ideation, anxious Skin: no rash, warm/dry Medical Decision Making Diagnostic Impression: Primary Impression: Alcohol withdrawal Qualified Codes: F10.230 - Alcohol dependence with withdrawal, uncomplicated Additional Impression: Gastritis Qualified Codes: K29.20 - Alcoholic gastritis without bleeding ER Course Patient presents with epigastric pain, vomiting and anxiety with slight tremor after drinking 2 pints of whiskey a day for several days. Differential includes acute myocardial infarction, gastritis, peptic ulcer, alcohol withdrawal, electrolyte imbalance amongst others. Patient evaluated with EKG and labs. Patient treated with IV hydration, thiamine, Pepcid, Ativan and Mylanta. Based on the fact that he went through rehab in November doubt significant risk for delirium tremens. Patient placed on handle sewer. EKG without injury. Chest x-ray normal. Labs with normal white count and slightly elevated hemoglobin. CMP unremarkable. Blood alcohol 160. Patient tolerating oral intake and ate a sandwich. After this he was sleeping. Discussed results with patient and the need for return to alcoholics anonymous. In addition it was stressed that he follow-up with his primary physician. Patient proved after treatment is stable for outpatient observation and treatment. Laboratory Tests Test 03/20/20 05:00 White Blood Count 9.6 K/UL (4.8-10.8) Red Blood Count 5.90 M/UL (4.70-6.10) Hemoglobin 16.8 G/DL (14.2-18.0) Hematocrit 50.6 % (42.0-52.0) Mean Corpuscular Volume 86 FL (80-99) Mean Corpuscular Hemoglobin 28.5 PG (27.0-31.0) Mean Corpuscular Hemoglobin Concent 33.3 G/DL (32.0-36.0) Red Cell Distribution Width 12.3 % (11.6-14.8) Platelet Count 335 K/UL (150-450) Mean Platelet Volume 6.2 FL (6.5-10.1) L Neutrophils (%) (Auto) 66.4 % (45.0-75.0) Lymphocytes (%) (Auto) 25.5 % (20.0-45.0) Monocytes (%) (Auto) 6.9 % (1.0-10.0) Eosinophils (%) (Auto) 0.2 % (0.0-3.0) Basophils (%) (Auto) 1.0 % (0.0-2.0) Urine Color Yellow Urine Appearance Clear Urine pH 6 (4.5-8.0) Urine Specific [place] 1.020 (1.005-1.035) Urine Protein Negative (NEGATIVE) Urine Glucose (UA) Negative (NEGATIVE) Urine Ketones Negative (NEGATIVE) Urine Blood Negative (NEGATIVE) Urine Nitrite Negative (NEGATIVE) Urine Bilirubin Negative (NEGATIVE) Urine Urobilinogen Normal MG/DL (0.0-1.0) Urine Leukocyte Esterase Negative (NEGATIVE) Sodium Level 141 MMOL/L (136-145) Potassium Level 4.1 MMOL/L (3.5-5.1) Chloride Level 103 MMOL/L (98-107) Carbon Dioxide Level 27 MMOL/L (21-32) Anion Gap 11 mmol/L (5-15) Blood Urea Nitrogen 17 mg/dL (7-18) Creatinine 1.2 MG/DL (0.55-1.30) Estimated Glomerular Filtration Rate > 60 mL/min (>60) Glucose Level 145 MG/DL (74-106) H Calcium Level 9.0 MG/DL (8.5-10.1) Phosphorus Level 3.9 MG/DL (2.5-4.9) Magnesium Level 1.9 MG/DL (1.8-2.4) Total Bilirubin 0.3 MG/DL (0.2-1.0) Aspartate Amino Transferase (AST) 29 U/L (15-37) Alanine Aminotransferase (ALT) 66 U/L (12-78) Alkaline Phosphatase 68 U/L (46-116) Total Creatine Kinase 165 U/L (26-308) Troponin I 0.000 ng/mL (0.000-0.056) Total Protein 8.0 G/DL (6.4-8.2) Albumin 4.3 G/DL (3.4-5.0) Globulin 3.7 g/dL Albumin/Globulin Ratio 1.2 (1.0-2.7) Salicylates Level 2.2 ug/mL (2.8-20) L Urine Opiates Screen Negative (NEGATIVE) Acetaminophen Level < 2 MCG/ML (10-30) L Urine Barbiturates Screen Negative (NEGATIVE) Phencyclidine (PCP) Screen Negative (NEGATIVE) Urine Amphetamines Screen Negative (NEGATIVE) Urine Benzodiazepines Screen Negative (NEGATIVE) Urine Cocaine Screen Negative (NEGATIVE) Urine Marijuana (THC) Screen Negative (NEGATIVE) Serum Alcohol 160 mg/dL EKG Diagnostic Results Rate: normal Rhythm: NSR ST Segments: no acute changes Rhythm Strip Diag. Results EP Interpretation: yes Rhythm: NSR, no PVC's, no ectopy Last Vital Signs Date Time Temp Pulse Resp B/P (MAP) Pulse Ox O2 Delivery O2 Flow Rate FiO2 03/20/20 07:38 98.2 78 19 126/76 99 Room Air Status: improved Disposition: HOME, SELF-CARE Condition: Improved Scripts Famotidine* (Pepcid 20mg tablet*) 20 Mg Tablet 20 MG ORAL DAILY for Gerd, #30 TAB 0 Refills Prov: Prabhu Dailey MD 03/20/20 Acetaminophen (Tylenol) 325 Mg Tablet 650 MG ORAL Q6H PRN for Prn Pain/Headache/Temp > 101, #20 TAB 0 Refills Prov: Prabhu Dailey MD 03/20/20 Mag Hydrox/Aluminum Hyd/Simeth (Mylanta Maximum Strength Liq) 355 Ml Oral.susp 30 ML PO Q6HR PRN for abdominal pain, #240 ML Prov: Prabhu Dailey MD 03/20/20 Chlordiazepoxide Hcl* (LIBRIUM*) 10 Mg Capsule 10 MG ORAL THREE TIMES A DAY, #15 CAP 0 Refills Prov: Prabhu Dailey MD 03/20/20 Referrals: [facility] (PCP) Prabhu Dailey MD Mar 20, 2020 05:19
[2020-03-20 05:25] LABS: APPEARANCE,URINE CLEAR; BILIRUBIN, URINE NEGATIVE (NEGATIVE); EOSINOPHILS % (AUTO) 0.2 % (0.0-3.0); GLUCOSE, URINE (UA) NEGATIVE (NEGATIVE); HEMATOCRIT 50.6 % (42.0-52.0); HEMOGLOBIN 16.8 G/DL (14.2-18.0); KETONES,URINE NEGATIVE (NEGATIVE); LEUKOCYTE ESTERASE ,URINE NEGATIVE (NEGATIVE); LYMPHOCYTES % (AUTO) 25.5 % (20.0-45.0); MEAN CORPUSCULAR VOLUME 86 FL (80-99); MONOCYTES % (AUTO) 6.9 % (1.0-10.0); NEUTROPHILS % (AUTO) 66.4 % (45.0-75.0); NITRITE,URINE NEGATIVE (NEGATIVE); PH,URINE 6 (4.5-8.0); PLATELET COUNT 335 K/UL (150-450); RED CELL DISTRIBUTION WIDTH 12.3 % (11.6-14.8); UROBILINOGEN,URINE NORMAL MG/DL (0.0-1.0); WHITE BLOOD COUNT 9.6 K/UL (4.8-10.8)
[2020-03-20 05:31] LABS: COLOR,URINE YELLOW; PROTEIN,URINE NEGATIVE (NEGATIVE)
[2020-03-20 05:36] LABS: ANION GAP 11 mmol/L (5-15); BLOOD UREA NITROGEN 17 mg/dL (7-18); CARBON DIOXIDE 27 MMOL/L (21-32); CHLORIDE 103 MMOL/L (98-107); CREATININE 1.2 MG/DL (0.55-1.30); POTASSIUM 4.1 MMOL/L (3.5-5.1); SODIUM 141 MMOL/L (136-145)
[2020-03-20] MEDS ORDERED: LIBRIUM10 MG ORAL (05:36)
[2020-03-20] MEDS ORDERED: MYLANTA MAXIMU355 ML PO (05:36)
[2020-03-20] MEDS ORDERED: FAMOTIDINE20 MG ORAL (05:36)
[2020-03-20] MEDS ORDERED: TYLENOL325 MG ORAL (05:36)
[2020-03-20 05:40] LABS: ALANINE AMINOTRANSFERASE 66 U/L (12-78); ALBUMIN 4.3 G/DL (3.4-5.0); ALBUMIN/GLOBULIN RATIO 1.2 (1.0-2.7); ALKALINE PHOSPHATASE 68 U/L (46-116); ASPARTATE AMINO TRANSFERASE 29 U/L (15-37); BILIRUBIN,TOTAL 0.3 MG/DL (0.2-1.0); CREATINE KINASE 165 U/L (26-308); PHOSPHORUS 3.9 MG/DL (2.5-4.9)
--- NOTE | 2020-03-20 06:36 | NUR ---
ED Nurse Note: pt tolerating po intake well. awaiting dispo
[2020-03-20 07:21] VITALS: BP 121/70
[2020-03-20 07:38] VITALS: BP 126/76
== END 2020-03-20 07:38 | disposition home or self-care (01) ==
LOC: EMR 04:45
DX: F10.230 Alcohol dependence with withdrawal, uncomplicated (principal); K29.20 Alcoholic gastritis without bleeding
CPT/HCPCS: 36415; 80053; 80307; 81003; 82550; 83735; 84100; 84484; 85025; 93005; 96365; 96375; G0480; G0481; J2405; J7030; S0028; Z7502; 99284

== ENCOUNTER 2020-04-06 12:21 | Emergency (ER) | payer MEDICAID ==
[~2020-04-06] VITALS: Ht 177.8 cm; Wt 90.7 kg
[~2020-04-06 12:21] MED LIST changes: +LIBRIUM10 MG ORAL; +MYLANTA MAXIMU355 ML PO; +TYLENOL325 MG ORAL
[2020-04-06 12:49] VITALS: BP 136/89
--- NOTE | 2020-04-06 12:49 | NUR ---
ED Nurse Note: pt presents to ED c/o red circular rashes on his BLE and back x 2 weeks. pt states the rash is very itchy, he has tried topical treatments without relief of symptoms
--- NOTE | 2020-04-06 12:59 | Emergency Room Report ---
History of Present Illness General Chief Complaint: Skin Rash/Abscess Source: Patient Present Illness HPI 35-year-old male with no significant past medical history here complaining of a pruritic circular rash starting inner thighs andinto the back. Reports that he is having pruritus all over body. Reports that he has a cat at home. Denies any pain of the lesions. Denies any history of autoimmune disease or psoriasis. Denies chest pain, shortness of breath, anaphylaxis. Denies fever and chills. Denies all other URI symptoms. He also reports that he has not had any new products and has not had any new food. The rash appears to be circular, with central clearing. Allergies: Coded Allergies: No Known Allergies (Unverified , 08/03/18) COVID-19 Screening Contact w/high risk pt: No Recent Travel to affected area: No Experienced COVID-19 symptoms?: No COVID-19 Testing performed FOCUSER: Yes COVID-19 Screening: Positive COVID-19 COVID-19 Testing Source: 02/26/20 Patient History Past Medical History: see triage record Past Surgical History: none Pertinent Family History: none Immunizations: UTD Reviewed Nursing Documentation: PMH: Agreed; PSxH: Agreed Nursing Documentation-PMH Past Medical History: No History, Except For Review of Systems All Other Systems: negative except mentioned in HPI Physical Exam Vital Signs Date Time Temp Pulse Resp B/P (MAP) Pulse Ox O2 Delivery O2 Flow Rate FiO2 04/06/20 12:38 97.9 77 16 136/89 (105) 96 Room Air Sp02 EP Interpretation: reviewed, normal General Appearance: no apparent distress, alert, GCS 15, non-toxic Head: normocephalic, atraumatic Eyes: bilateral eye normal inspection, bilateral eye PERRL ENT: normal ENT inspection Neck: full range of motion, no bony tend, supple/symm/no masses Respiratory: chest non-tender, lungs clear, normal breath sounds, speaking full sentences Cardiovascular #1: regular rate, rhythm, no edema, no murmur Rectal: deferred Musculoskeletal: back normal Neurologic: alert, motor strength/tone normal, oriented x3, sensory intact, responsive, speech normal Psychiatric: judgement/insight normal, memory normal, mood/affect normal, no suicidal/homicidal ideation Skin: rash - circular rash on inner thighs, upper and lower back with central clearing minimal scaling Lymphatic: no adenopathy Medical Decision Making PA Attestation All diagnoses and treatment plans were reviewed and discussed with my supervising physician Dr. Dailey Diagnostic Impression: Primary Impression: Tinea corporis ER Course 35-year-old male with no significant past medical history here complaining of a pruritic circular rash starting inner thighs andinto the back. Reports that he is having pruritus all over body. Reports that he has a cat at home. Denies any pain of the lesions. Denies any history of autoimmune disease or psoriasis. Denies chest pain, shortness of breath, anaphylaxis. Denies fever and chills. Denies all other URI symptoms. He also reports that he has not had any new products and has not had any new food. The rash appears to be circular, with central clearing. Ddx considered but are not limited to: Eczema, scabies, lice, Vital signs: are WNL, pt. is afebrile H&PE are most consistent with: Tinea corporis ORDERS: Ketoconazole cream, Lotrisone cream, prednisone, Benadryl ED INTERVENTIONS: None required at this time. DISCHARGE: At this time pt. is stable for d/c to home. Will provide printed patient care instructions, and any necessary prescriptions. Care plan and follow up instructions have been discussed with the patient prior to discharge. 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 If worsening symptoms return to the emergency room Last Vital Signs Date Time Temp Pulse Resp B/P (MAP) Pulse Ox O2 Delivery O2 Flow Rate FiO2 04/06/20 12:49 97.9 16 136/89 96 Room Air 04/06/20 12:38 77 Disposition: HOME, SELF-CARE Condition: Stable Scripts Diphenhydramine Hcl* (BENADRYL*) 25 Mg Capsule 25 MG ORAL QHS PRN for Itching, #20 CAP Prov: Huma Epperson 04/06/20 Prednisone* (PREDNISONE*) 20 Mg Tablet 40 MG ORAL DAILY for 5 Days, #10 TAB Prov: Huma Epperson 04/06/20 Clotrimazole* (LOTRIMIN*) 15 Gm Cream..g. 2 GM TOPIC TWICE A DAY for 14 Days, #30 GM Prov: Huma Epperson 04/06/20 Ketoconazole (Ketoconazole) 15 Gm Cream..g. 2 GM TOPIC DAILY for 28 Days, #30 GM 2% Prov: Huma Epperson 04/06/20 Patient Instructions: Body Ringworm Additional Instructions: Take medication as directed, have your cat be groomed and treated for ringworm, wash all clothes, if worsening symptoms return to emergency room also follow-up with primary doctor and toilet and laundry soap supervisor Huma Epperson Apr 06, 2020 12:59
[2020-04-06] MEDS ORDERED: PREDNISONE20 MG ORAL (13:03)
[2020-04-06] MEDS ORDERED: NIZORAL 2% C1 APPLIC TOPIC (13:03)
[2020-04-06] MEDS ORDERED: CLOTRIMAZOLE15 GM TOPIC (13:03)
[2020-04-06] MEDS ORDERED: BENADRYL25 MG ORAL (13:03)
[2020-04-06 13:05] VITALS: BP 136/89
== END 2020-04-06 13:15 | disposition home or self-care (01) ==
LOC: EMR 13:13
DX: B35.4 Tinea corporis (principal); Z86.16 Personal history of COVID-19
CPT/HCPCS: 99282

== ENCOUNTER 2020-04-19 09:12 | Emergency (ER) | payer MEDICAID ==
[~2020-04-19] VITALS: Ht 177.8 cm; Wt 90.7 kg
[~2020-04-19 09:12] MED LIST changes: +BENADRYL25 MG ORAL; +CLOTRIMAZOLE15 GM TOPIC; +NIZORAL 2% C1 APPLIC TOPIC; +PREDNISONE20 MG ORAL
[2020-04-19] MEDS ORDERED: AUGMENTIN 875-1 EAC1 ORAL (09:41)
[2020-04-19] MEDS ORDERED: PSEUDOEPHEDRINE60 MG PO (09:41)
[2020-04-19] MEDS ORDERED: Pseudoephedrine 30mg tab ORAL ONE (09:45)
[2020-04-19] MEDS ORDERED: Augmentin 875mg Tab ORAL ONE (09:45)
--- NOTE | 2020-04-19 09:47 | Emergency Room Report ---
History of Present Illness General Chief Complaint: Headache Source: Patient Present Illness HPI Patient is a 34-year-old male past medical history of sinus infection who presents to the ER complaining of sinus headache for the past 2 days. Patient states that he is pain in his forehead and his upper cheeks. He states that he feels nasal congestion. He feels like his ears are clogged. He denies any throat pain. He denies any vision changes. He denies any chest pain or cough. He denies any fever or chills. Patient states that he had COVID-19 in February 2020. 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 Patient History Reviewed Nursing Documentation: PMH: Agreed; PSxH: Agreed Nursing Documentation-PMH Past Medical History: No History, Except For Review of Systems All Other Systems: negative except mentioned in HPI Physical Exam Vital Signs Date Time Temp Pulse Resp B/P (MAP) Pulse Ox O2 Delivery O2 Flow Rate FiO2 04/19/20 09:31 97.9 70 16 129/90 (103) 99 Room Air Sp02 EP Interpretation: reviewed, normal General Appearance: no apparent distress, alert, GCS 15, non-toxic Head: normocephalic, atraumatic Eyes: bilateral eye normal inspection, bilateral eye PERRL ENT: other - Tenderness to palpation along frontal and maxillary sinuses Neck: full range of motion, no meningismus Respiratory: no respiratory distress, no accessory muscle use, speaking full sentences Cardiovascular #1: regular rate, rhythm Rectal: deferred Musculoskeletal: normal range of motion 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 After discussing risks and benefits of further diagnostics, treatment plans, as well as indications for and risks of admission, the patient is agreeable to being discharged home. I have explained that their evaluation and treatment in the emergency department today is an important step towards them achieving better health but that their evaluation today is not intended to replace further evaluation and treatment by a physician in their local clinic. I have explained that while the current findings suggest no immediate life threatening emergency they will require further evaluation and treatment by a physician of their rae in their area. They understand that it will be necessary for them to review the final reports of their ED visit with their clinic physician. We have reviewed indications for return to the Emergency Department. I have explained that additional time may need to pass and/or additional testing as an outpatient may be necessary before a definitive diagnosis can be made. They tell me they are willing to follow up as instructed within the timeframe I recommend. They appear to understand what we discussed. Additionally they understand that if they are unable to be seen by an outpatient physician they are welcome, and in fact should, return to the Emergency Department for a repeat evaluation. The patient is stable at time of discharge. Last Vital Signs Date Time Temp Pulse Resp B/P (MAP) Pulse Ox O2 Delivery O2 Flow Rate FiO2 04/19/20 09:31 97.9 70 16 129/90 (103) 99 Room Air Disposition: HOME, SELF-CARE Condition: Stable Scripts Amoxicillin/Potassium Clav 875-125* (AUGMENTIN 875-125 TABLET*) 1 Each Tablet 1 TAB ORAL TWICE A DAY, #14 TAB Prov: Domi Chiang M.D. 04/19/20 Pseudoephedrine Hcl* (SUDAFED*) 60 Mg Tablet 60 MG PO Q6H for 5 Days, TAB Prov: Domi Chiang M.D. 04/19/20 [facility] Patient Instructions: Sinusitis, Adult, [id number] Additional Instructions: The patient was provided with discharge instructions, notified to follow-up with a primary care doctor and or specialist in the next 24-48 hours, and to return to the ED if they have worsening of their symptoms. Please note that this report is being documented using [employer] technology. This can lead to erroneous entry secondary to incorrect interpretation by the dictating instrument. Domi Chiang M.D. Apr 19, 2020 09:47
[2020-04-19 09:48] VITALS: BP 129/90
--- NOTE | 2020-04-19 09:48 | NUR ---
ED Nurse Note:pt stated his sinuses started hurting yesterday. denies any drainage just pressure above his eyes.
--- NOTE | 2020-04-19 09:49 | NUR ---
ER DISCHARGE NOTE: Patient is cleared to be discharged per ERMD, pt is aox4, on room air, with stable vital signs. pt was given dc and prescription instructions, pt was able to verbalize understanding. pt is able to ambulate with steady gait. pt took all belongings.
== END 2020-04-19 09:49 | disposition home or self-care (01) ==
LOC: EMR 09:35
DX: J32.9 Chronic sinusitis, unspecified (principal); Z86.16 Personal history of COVID-19
CPT/HCPCS: 99282